=== PATIENT | female | born 1990 | race Caucasian/White ===

== ENCOUNTER 2017-04-07 22:42 | Emergency (ER) | payer SELFPAY ==
[~2017-04-07] VITALS: Ht 165.1 cm; Wt 60.4 kg
[~2017-04-07 22:42] MED LIST: HYDR-923; IBUP800T19 PO; PREN1TAB58 PO
[2017-04-07 23:33] LABS: INFLUENZA A PATIENT NEGATIVE (NEGATIVE); INFLUENZA B PATIENT NEGATIVE (NEGATIVE)
--- NOTE | 2017-04-07 23:57 | PHYS DOC ---
Past History Past Medical History: Cancer, Ovarian Cyst Past Surgical History: Appendectomy, Cancer Surgery Smoking: Greater than 1 pack/day Alcohol Use: Occasionally Drug Use: None Adult General Chief Complaint Chief Complaint: FLU SYMPTOM [facility] 26-year-old male patient complaining of fever and cough and sore throat and nasal congestion for the last 3 days that gradually getting worse. Patient states she feels pain in her throat that radiated to her ears and complaining of generalized weakness and not feeling good. Patient complaining of nausea without vomiting and diarrhea. Patient states she has sick contacts at work. Review of Systems Review of Systems Constitutional: Reports fever and generalized weakness Eyes: Denies change in visual acuity, redness, or eye pain [] HENT: Reports nasal congestion or sore throat Respiratory: Reports cough and shortness of breath[] Cardiovascular: No additional information not addressed in HPI [] GI: Denies abdominal pain, nausea, vomiting, bloody stools or diarrhea [] : Denies dysuria or hematuria [] Musculoskeletal: Denies back pain or joint pain [] Integument: Denies rash or skin lesions [] Neurologic: Denies headache, focal weakness or sensory changes [] Endocrine: Denies polyuria or polydipsia [] All other systems were reviewed and found to be within normal limits, except as documented in this note. Allergies Allergies Allergies Coded Allergies Type Severity Reaction Last Updated Verified divalproex sodium Allergy Intermediate Hives 07/20/15 Yes ondansetron HCl Allergy Intermediate 07/20/15 Yes promethazine HCl Allergy Intermediate 07/20/15 Yes Physical Exam Physical Exam Constitutional: Well developed, well nourished, mild distress, non-toxic appearance, febrile, temperature 100.3. [] HENT: Normocephalic, atraumatic, bilateral external ears normal, oropharynx moist, pharyngeal erythema and edema, no oral exudates, nose normal. [] Eyes: PERRLA, EOMI, conjunctiva normal, no discharge. [] Neck: Normal range of motion, no tenderness, supple, no stridor. [] Cardiovascular:Heart rate regular rhythm, no murmur [] Lungs & Thorax: Bilateral breath sounds clear to auscultation [] Abdomen: Bowel sounds normal, soft, no tenderness, no masses, no pulsatile masses. [] Skin: Warm, dry, no erythema, no rash. [] Back: No tenderness, no CVA tenderness. [] Extremities: No tenderness, no cyanosis, no clubbing, ROM intact, no edema. [] Neurologic: Alert and oriented X 3, normal motor function, normal sensory function, no focal deficits noted. [] Psychologic: Affect normal, judgement normal, mood normal. [] Current Patient Data Vital Signs Vital Signs Date Time Temp Pulse Resp B/P (MAP) Pulse Ox O2 Delivery O2 Flow Rate FiO2 04/07/17 22:50 98.9 96 18 100 Room Air Lab Results Laboratory Tests Test 04/07/17 23:00 Influenza Type A (Rapid) Negative (NEGATIVE) Influenza Type B (Rapid) Negative (NEGATIVE) EKG EKG [] Radiology/Procedures Radiology/Procedures [] Course & Med Decision Making Course & Med Decision Making Pertinent Labs studies reviewed. (See chart for details) Evolution of patient in ER showed 26-year-old female patient with flulike symptoms for the last 3 days with negative flu test. Patient treated with Tylenol and Tessalon and felt better. Plan discharge patient home with diagnosis of viral upper respiratory infection. Dragon Disclaimer Dragon Disclaimer This electronic medical record was generated, in whole or in part, using a voice recognition dictation system. Departure Departure: Impression: Primary Impression: Fever Additional Impressions: Tobacco abuse Tobacco abuse counseling Disposition: 01 HOME, SELF-CARE (At 0019) Condition: IMPROVED Referrals: LUIS E HICKMAN MD (PCP) Patient Instructions: Fever, Adult, Smoking Cessation, Tips For Success, Upper Respiratory Infection, Adult Additional Instructions: Drink plenty of liquids Follow-up with your primary care physician in 3-5 days Return to ER if not getting better Scripts Tramadol Hcl (ULTRAM) 50 Mg Tablet 50 MG PO PRN Q6HRS Y for PAIN, #14 TAB Prov: AR WALLACE MD 04/08/17 Benzonatate (TESSALON PERLE) 100 Mg Capsule 1 CAP PO TID, #30 CAP Prov: AR WALLACE MD 04/08/17 Problem Qualifiers AR WALLACE MD Apr 07, 2017 23:57
[2017-04-08] MEDS ORDERED: HYDROcodone/APAP 5/325MG 1 TAB TABLET PO ONE (00:15)
[2017-04-08] MEDS ORDERED: ACETAMINOPHEN 325 MG TABLET PO ONE (00:15)
[2017-04-08] MEDS ORDERED: BENZONATATE 100 MG CAPSULE. PO ONE (00:15)
[2017-04-08] MEDS ORDERED: BENZ100C PO (00:21)
[2017-04-08] MEDS ORDERED: TRAM-48 PO (00:21)
[2017-04-08 00:25] VITALS: BP 106/62
== END 2017-04-08 00:30 | disposition home or self-care (01) ==
LOC: ER 22:42
DX: J06.9 Acute upper respiratory infection, unspecified (principal); B97.89 Other viral agents as the cause of diseases classified elsewhere; F17.200 Nicotine dependence, unspecified, uncomplicated; Z71.6 Tobacco abuse counseling; Z88.8 Allergy status to other drugs, medicaments and biological substances
CPT/HCPCS: 87804; 99284

== ENCOUNTER 2017-04-13 17:42 | Emergency (ER) | payer SELFPAY ==
[~2017-04-13] VITALS: Ht 165.1 cm; Wt 60.4 kg
[~2017-04-13 17:42] MED LIST changes: +BENZ100C PO; +TRAM-48 PO
--- NOTE | 2017-04-13 17:50 | ED.ADGEN ---
Past History Past Medical History: Cancer, Ovarian Cyst, Other Past Surgical History: Appendectomy, Cancer Surgery Smoking: Greater than 1 pack/day Alcohol Use: Occasionally Drug Use: None Adult General Chief Complaint Chief Complaint " I am having bad abdomen pain again.. more here on Rt. I ve had ovarian cysts in the past.. I ve had 5 ovarian cyst surgeries [facility] HPI Patient is a 26 year old female who presents with above hx and complaints of lower Rt abd. and pelvic pain. Pt. has hx of recurrent ovarian cysts and 5 surgeries for ovarian cyst. Patient normally follows with Dr. North and Dr. Wilson. Patient has has an appendectomy on right. Patient denies any trauma, bad food, travel, or specific ill contacts. Reportedly having normal stools. Patient denies pelvic discharge. Patient denies history of STDs. Review of Systems Review of Systems Constitutional: Denies fever or chills [] Eyes: Denies change in visual acuity, redness, or eye pain [] HENT: Denies nasal congestion or sore throat [] Respiratory: Denies cough or shortness of breath [] Cardiovascular: No additional information not addressed in HPI [] GI: Complaints of abdominal pain, nausea, .Denies Vomiting, bloody stools or diarrhea [] : some complaints of dysuria . Denies vaginal discharge Musculoskeletal: Denies back pain or joint pain [] Integument: Denies rash or skin lesions [] Neurologic: Denies headache, focal weakness or sensory changes [] Endocrine: Denies polyuria or polydipsia [] All other systems were reviewed and found to be within normal limits, except as documented in this note. Family History Family History Noncontributory to presentation Current Medications Current Medications Current Medications Medications (Trade) Dose Ordered Sig/Arcadio Start Time Stop Time Status Last Admin Dose Admin Ceftriaxone Sodium 1 gm/ Sodium Chloride 50 ml @ 100 mls/hr 1X ONCE 04/13/17 21:30 04/13/17 21:59 UNV Ceftriaxone Sodium (Rocephin) 1 gm 1X ONCE 04/13/17 22:00 04/13/17 22:01 DC 04/13/17 21:45 1 GM Diphenhydramine HCl (Benadryl) 50 mg 1X ONCE 04/13/17 22:30 04/13/17 22:30 DC 04/13/17 22:21 50 MG Famotidine (Pepcid Vial) 20 mg 1X ONCE 04/13/17 18:45 04/13/17 18:46 DC 04/13/17 19:39 20 MG Iohexol (Omnipaque 300 Mg/ml) 75 ml 1X ONCE 04/13/17 19:45 04/13/17 19:46 DC 04/13/17 19:39 75 ML Ketorolac Tromethamine (Toradol) 30 mg 1X ONCE 04/13/17 21:00 04/13/17 21:32 DC 04/13/17 21:00 30 MG Lactated Ringer's 1,000 ml @ 1,000 mls/hr Q1H 04/13/17 18:11 04/13/17 19:10 DC 04/13/17 19:39 1,000 MLS/HR Magnesium Hydroxide (Milk Of Magnesia) 2,400 mg 1X ONCE 04/13/17 20:45 04/13/17 20:46 DC 04/13/17 20:30 2,400 MG Metoclopramide HCl (Reglan Vial) 10 mg 1X ONCE 04/13/17 22:30 04/13/17 22:30 DC 04/13/17 22:17 10 MG Morphine Sulfate (Morphine 10mg Syringe) 10 mg 1X ONCE 04/13/17 19:00 04/13/17 19:01 DC 04/13/17 19:40 10 MG Ondansetron HCl (Zofran) 8 mg 1X ONCE 04/13/17 18:15 04/13/17 18:17 DC Phenazopyridine HCl (Pyridium) 200 mg 1X ONCE 04/13/17 22:00 04/13/17 22:01 DC See nursing for home meds Allergies Allergies Allergies Coded Allergies Type Severity Reaction Last Updated Verified divalproex sodium Allergy Intermediate Hives 04/13/17 Yes ondansetron HCl Allergy Intermediate 04/13/17 Yes promethazine HCl Allergy Intermediate 04/13/17 Yes Physical Exam Physical Exam Constitutional: Moderately acute distress, non-toxic appearance. [] HENT: Normocephalic, atraumatic, bilateral external ears normal, oropharynx moist, no oral exudates, nose normal. [] Eyes: PERRLA, EOMI, conjunctiva normal, no discharge. [] Neck: Normal range of motion, no tenderness, supple, no stridor. [] Cardiovascular:Heart rate regular rhythm, no murmur [] Lungs & Thorax: Bilateral breath sounds clear to auscultation [] Abdomen: Bowel sounds decreased, soft, lower Rt. pelvic tenderness, no masses, no pulsatile masses. [] Old surgery scars. Patient declines rectal or pelvic exam at this time. Mild distention. Skin: Warm, dry, no erythema, no rash. [] Tattoos. Back: No tenderness, no CVA tenderness. [] Extremities: No tenderness, no cyanosis, no clubbing, ROM intact, no edema. [] No psoas. No heel tap. Neurologic: Alert and oriented X 3, normal motor function, normal sensory function, no focal deficits noted. [] Psychologic: Affect anxious, , judgement normal, mood normal. [] Current Patient Data Vital Signs Vital Signs Date Time Temp Pulse Resp B/P (MAP) Pulse Ox O2 Delivery O2 Flow Rate FiO2 04/13/17 21:56 90 90/55 (67) 99 04/13/17 21:26 18 04/13/17 19:59 98.7 Room Air Lab Results Laboratory Tests Test 04/13/17 19:10 04/13/17 19:20 White Blood Count 7.3 x10^3/uL (4.0-11.0) Red Blood Count 4.37 x10^6/uL (3.50-5.40) Hemoglobin 13.3 g/dL (12.0-15.5) Hematocrit 39.3 % (36.0-47.0) Mean Corpuscular Volume 90 fL (79-100) Mean Corpuscular Hemoglobin 31 pg (25-35) Mean Corpuscular Hemoglobin Concent 34 g/dL (31-37) Red Cell Distribution Width 13.7 % (11.5-14.5) Platelet Count 222 x10^3/uL (140-400) Neutrophils (%) (Auto) 60 % (31-73) Lymphocytes (%) (Auto) 31 % (24-48) Monocytes (%) (Auto) 7 % (0-9) Eosinophils (%) (Auto) 1 % (0-3) Basophils (%) (Auto) 0 % (0-3) Neutrophils # (Auto) 4.4 x10^3uL (1.8-7.7) Lymphocytes # (Auto) 2.3 x10^3/uL (1.0-4.8) Monocytes # (Auto) 0.5 x10^3/uL (0.0-1.1) Eosinophils # (Auto) 0.1 x10^3/uL (0.0-0.7) Basophils # (Auto) 0.0 x10^3/uL (0.0-0.2) Prothrombin Time 11.4 SEC (9.4-11.4) Prothrombin Time INR 1.1 (0.9-1.1) PTT 27 SEC (23-33) Sodium Level 142 mmol/L (136-145) Potassium Level 3.5 mmol/L (3.5-5.1) Chloride Level 105 mmol/L (98-107) Carbon Dioxide Level 27 mmol/L (21-32) Anion Gap 10 (6-14) Blood Urea Nitrogen 8 mg/dL (7-20) Creatinine 0.6 mg/dL (0.6-1.0) Estimated GFR (Cockcroft-Gault) 122.8 Glucose Level 87 mg/dL (70-99) Calcium Level 9.0 mg/dL (8.5-10.1) Total Bilirubin 0.4 mg/dL (0.2-1.0) Direct Bilirubin 0.1 mg/dL (0.0-0.2) Aspartate Amino Transferase (AST) 14 U/L (15-37) L Alanine Aminotransferase (ALT) 19 U/L (14-59) Alkaline Phosphatase 52 U/L (46-116) Total Protein 8.3 g/dL (6.4-8.2) H Albumin 4.0 g/dL (3.4-5.0) Amylase Level 42 U/L (25-115) Lipase 113 U/L (73-393) Urine Opiates Screen Pos (NEG) Urine Methadone Screen Neg (NEG) Urine Barbiturates Neg (NEG) Urine Phencyclidine Screen Neg (NEG) Urine Amphetamine/Methamphetamine Neg (NEG) Urine Benzodiazepines Screen Neg (NEG) Urine Cocaine Screen Neg (NEG) Urine Cannabinoids Screen Neg (NEG) Urine Ethyl Alcohol Neg (NEG) Urine Collection Type Unknown Urine Color Yellow Urine Clarity Cloudy Urine pH 5.0 Urine Specific [place] 1.025 Urine Protein Neg (NEG-TRACE) Urine Glucose (UA) Neg mg/dL (NEG) Urine Ketones (Stick) Trace mg/dL (NEG) Urine Blood Trace (NEG) Urine Nitrite Neg (NEG) Urine Bilirubin Neg (NEG) Urine Urobilinogen Dipstick 0.2 mg/dL (0.2 mg/dL) Urine Leukocyte Esterase Small (NEG) Urine RBC 1-2 /HPF (0-2) Urine WBC 20-40 /HPF (0-4) Urine Squamous Epithelial Cells Few /LPF Urine Bacteria 0 /HPF (0-FEW) Urine Mucus Mod /LPF EKG EKG [] Radiology/Procedures Radiology/Procedures My interpretation acute abdomen shows[] nonspecific bowel gas pattern. There is an IUD. No free air in the diaphragm. CT of abdomen shows absence of the appendix and Lt. ovary. There is a small amount of free fluid, and small ovary cyst on right. No surgical pathology appreciated. See formal report when available. Course & Med Decision Making Course & Med Decision Making Pertinent Labs and Imaging studies reviewed. (See chart for details). Push fruit juices vitamin C drinks. Stay on a clear fluid diet for the next 24 hours. Take Tylenol and ibuprofen as needed for pain. Marked discomfort may take Vicoprofen 4 times a day. Take milk mag daily for constipation if taking narcotics. Return if any concerns. Follow-up primary care. Follow-up urine cultures with primary care. Take Keflex 500 mg 3 times a day x7 days. [] Final Impression Final Impression 1. Abdomen Pain[] 2. Ovarian Cysts 3. UTI 4. Constipation Problems: Dragon Disclaimer Dragon Disclaimer This electronic medical record was generated, in whole or in part, using a voice recognition dictation system. KAVON LEI MD Apr 13, 2017 17:49
[2017-04-13] MEDS ORDERED: IV RINGERS SOLUTION,LACTATED 1,000 ML IV SCH (18:11)
[2017-04-13] MEDS ORDERED: ONDANSETRON PF 4 MG/2 ML VIAL. IV ONE (18:15)
[2017-04-13] MEDS ORDERED: FAMOTIDINE 20 MG/2 ML VIAL IVP ONE (18:45)
[2017-04-13] MEDS ORDERED: MORPHINE SULFATE 10 MG/ML SYRINGE. SQ ONE (19:00)
[2017-04-13 19:35] LABS: BASO % 0 % (0-3); EOS # 0.1 x10^3/uL (0.0-0.7); EOS % 1 % (0-3); HEMATOCRIT 39.3 % (36.0-47.0); HEMOGLOBIN 13.3 g/dL (12.0-15.5); LYMPH # 2.3 x10^3/uL (1.0-4.8); LYMPH % 31 % (24-48); MEAN CORPUSCULAR HEMOGLOBIN 31 pg (25-35); MEAN CORPUSCULAR HGB CONC 34 g/dL (31-37); MEAN CORPUSCULAR VOLUME 90 fL (79-100); MONO # 0.5 x10^3/uL (0.0-1.1); MONO % 7 % (0-9); NEUT # 4.4 x10^3uL (1.8-7.7); NEUT % 60 % (31-73); PLATELET COUNT 222 x10^3/uL (140-400); RED BLOOD COUNT 4.37 x10^6/uL (3.50-5.40); RED CELL DISTRIBUTION WIDTH 13.7 % (11.5-14.5); WHITE BLOOD COUNT 7.3 x10^3/uL (4.0-11.0)
[2017-04-13 19:42] LABS: CREATININE 0.6 mg/dL (0.6-1.0); DIRECT BILIRUBIN 0.1 mg/dL (0.0-0.2); GFR 122.8; POTASSIUM 3.5 mmol/L (3.5-5.1); TOTAL BILIRUBIN 0.4 mg/dL (0.2-1.0); TOTAL PROTEIN 8.3 g/dL (6.4-8.2)
[2017-04-13] MEDS ORDERED: IOHEXOL 300 MG/ML 75 ML VIAL. IV ONE (19:45)
[2017-04-13 19:53] LABS: AMPHETAMINE/METHAMPHETAMINE NEG (NEG); BARBITURATES NEG (NEG); BENZODIAZEPINES NEG (NEG); CANNABINOIDS NEG (NEG); COCAINE NEG (NEG); METHADONE NEG (NEG); OPIATES POS (NEG); PHENCYCLIDINE NEG (NEG)
--- NOTE | 2017-04-13 20:08 | RAD ---
EXAM: Abdomen and pelvis CT with intravenous contrast. HISTORY: Right lower quadrant pain. TECHNIQUE: Computed tomographic images of the abdomen and pelvis were obtained following the administration of 75 cc Omnipaque 300 intravenous contrast. Multiplanar reformatting was performed. *One or more of the following individualized dose reduction techniques were utilized for this examination: 1. Automated exposure control. 2. Adjustment of the mA and/or kV according to patient size. 3. Use of iterative reconstruction technique. COMPARISON: 09/15/2015. FINDINGS: Evaluation of the lower thorax is unremarkable. No hepatic lesion is seen. The gallbladder, pancreas and adrenal glands are unremarkable. There is a splenule adjacent to an otherwise unremarkable spleen. The adrenal glands are unremarkable. The appendix is surgically absent. No abnormally thickened or dilated loop of bowel is seen. There is an intrauterine contraceptive device within the endometrial cavity. The left ovary is surgically absent. There are multiple right ovarian follicles with a suspected peripherally enhancing involuting right ovarian follicular cyst measuring 1.4 cm. There is a small amount of pelvic free fluid. No pathologically enlarged lymph node is seen. There is no suspicious osseous lesion. There are small lumbar endplate Schmorl's nodes. IMPRESSION: 1. 1.4 cm peripherally enhancing right ovarian cyst, likely an involuting cyst. There is a small amount of pelvic free fluid, within physiologic limits. The left ovary an appendix are surgically absent. 2. No additional acute abdominal or pelvic finding. Electronically signed by: Farrah Ruiz MD (04/13/2017 8:05 PM) [facility]
[2017-04-13] MEDS ORDERED: MAGNESIUM HYDROXIDE 2,400 MG/30 ML ORAL.SUSP. PO ONE (20:45)
[2017-04-13 20:51] LABS: BACTERIA,URINE 0 /HPF (0-FEW); BILIRUBIN,URINE NEG (NEG); CLARITY,URINE CLOUDY; COLOR,URINE YELLOW; GLUCOSE,URINE NEG (NEG); NITRITE,URINE NEG (NEG); SQUAMOUS EPITHELIAL CELL,UR FEW /LPF; UROBILINOGEN,URINE 0.2 mg/dL (0.2 mg/dL); WBC,URINE 20-40 /HPF (0-4)
[2017-04-13] MEDS ORDERED: KETOROLAC 30 MG/ML VIAL. IV ONE (21:00)
[2017-04-13] MEDS ORDERED: CEPH-264 PO (21:27)
[2017-04-13] MEDS ORDERED: HYDR-79 PO (21:27)
[2017-04-13 21:56] VITALS: BP 90/55
[2017-04-13] MEDS ORDERED: cefTRIAXone IV Push 1 GM VIAL. IVP ONE (22:00)
[2017-04-13] MEDS ORDERED: PHENAZOPYRIDINE 200 MG TABLET. PO ONE (22:00)
[2017-04-13] MEDS ORDERED: diphenhydrAMINE 50 MG/ML VIAL IVP ONE (22:30)
[2017-04-13] MEDS ORDERED: METOCLOPRAMIDE HCL 10 MG/2 ML VIAL. IV ONE (22:30)
--- NOTE | 2017-04-14 07:52 | RAD ---
Acute abdomen series with chest, 3 views, 04/13/2017: History: Right lower quadrant pain An IUD is projected over the mid pelvis. The abdominal gas pattern is unremarkable. No free air seen in the abdomen. There is no evidence of organomegaly or abnormal abdominal calcification. The heart size is normal. The lungs are clear. There is no evidence of pleural fluid. IMPRESSION: 1. An IUD is in place. 2. No acute abdominal abnormality is detected.
== END 2017-04-13 22:15 | disposition home or self-care (01) ==
LOC: ER 17:42
DX: N83.201 Unspecified ovarian cyst, right side (principal); N39.0 Urinary tract infection, site not specified; K59.00 Constipation, unspecified; F17.200 Nicotine dependence, unspecified, uncomplicated; Z90.49 Acquired absence of other specified parts of digestive tract; Z88.8 Allergy status to other drugs, medicaments and biological substances
CPT/HCPCS: 36415; 74022; 74177; 80048; 80076; 80307; 81001; 82150; 83690; 85025; 85610; 85730; 87086; 96361; 96372; 96374; 96375; 99285; J0696; J1200; J1885; J2270; J2765; J7120; Q9967; S0028; G0479

== ENCOUNTER → 2018-04-22 | Outpatient (CLI) | payer OTHER ==
[~2018-04-22] MED LIST changes: +CEPH-264 PO; +DOXE10CA PO; +FLUO10CA13 PO; +HYDR-1179 PO; +METO10TA81 PO; +OMEP20CA9 PO; +SUCR1TAB35 PO
--- NOTE | 2018-04-22 08:03 | RAD ---
Right upper quadrant ultrasound 04/22/2018 INDICATION: Right upper quadrant pain. Intermittent times several weeks. COMPARISON STUDY: CT of the abdomen and pelvis April 13, 2017. Discussion: The pancreas is partially visualized. Visualized portions of the pancreas are normal in appearance. Visualized portions of the IVC are unremarkable. The gallbladder is normal in appearance without evidence of wall thickening, stones, or sludge. Portal venous flows in the normal direction. The common bile duct is mildly dilated at 5 mm in diameter. The liver is normal in size measuring 16.7 cm longitudinally. The liver is normal in echotexture. No focal hepatic lesions are seen. The right kidney is normal in appearance measuring 11.3 cm in length. IMPRESSION: 1.Minimal nonspecific prominence of the common bile duct. No other significant biliary dilatation is seen on ultrasound, or on recent CT scan. Finding may be incidental. Consider correlation with serum bilirubin levels. Consider MRCP as clinically indicated. 2. No other right upper quadrant sonographic abnormality is identified Electronically signed by: Huseyin Degroot MD (04/22/2018 8:00 AM) [id number]
== END | disposition home or self-care (01) ==
LOC: US 07:17
PROVIDERS: ATTEND Family Medicine
DX: R10.11 Right upper quadrant pain (principal); R10.33 Periumbilical pain; R11.0 Nausea
CPT/HCPCS: 76705

== ENCOUNTER 2018-05-07 11:51 | Emergency (ER) | payer OTHER ==
[~2018-05-07] VITALS: Ht 165.1 cm; Wt 68.0 kg
[~2018-05-07 11:51] MED LIST changes: -DOXE10CA PO; -FLUO10CA13 PO; -METO10TA81 PO; -OMEP20CA9 PO; -SUCR1TAB35 PO
[2018-05-07] MEDS ORDERED: IV NORMAL SALINE 1,000ML 1,000 ML IV SCH (12:14)
[2018-05-07 12:46] LABS: BASO % 1 % (0-3); EOS # 0.1 x10^3/uL (0.0-0.7); EOS % 1 % (0-3); HEMATOCRIT 39.7 % (36.0-47.0); HEMOGLOBIN 13.1 g/dL (12.0-15.5); LYMPH # 1.2 x10^3/uL (1.0-4.8); LYMPH % 34 % (24-48); MEAN CORPUSCULAR HEMOGLOBIN 31 pg (25-35); MEAN CORPUSCULAR HGB CONC 33 g/dL (31-37); MEAN CORPUSCULAR VOLUME 92 fL (79-100); MONO # 0.3 x10^3/uL (0.0-1.1); MONO % 10 % (0-9); NEUT % 54 % (31-73); PLATELET COUNT 157 x10^3/uL (140-400); RED BLOOD COUNT 4.31 x10^6/uL (3.50-5.40); RED CELL DISTRIBUTION WIDTH 13.9 % (11.5-14.5); WHITE BLOOD COUNT 3.6 x10^3/uL (4.0-11.0)
--- NOTE | 2018-05-07 12:48 | PHYS DOC ---
Past History Past Medical History: Cancer, Ovarian Cyst, Other Past Surgical History: No Surgical History Smoking: Greater than 1 pack/day Alcohol Use: None Drug Use: None Adult General Chief Complaint Chief Complaint: BLOODY STOOL HPI HPI Patient is a 27 year old female who presents with complaint of abdominal pain, vomiting, and diarrhea. Patient states that her symptoms have been present over the past 2 weeks. Patient states that she has been following at her primary physician's office for continued workup. Recently had a gallbladder ultrasound and MRCP completed. Patient states that she was noted to have a mildly dilated common bile duct but no evidence of gallbladder stones or common bile duct blockage. States despite outpatient treatment with Zofran and Phenergan, she has had continued vomiting. Rates abdominal pain currently 7 out of 10. Patient states it's in her upper abdomen and radiates to her right upper quadrant. Notes that 2 days ago she had a fever of 102F but no fevers today. States she did take Tylenol 1000 mg approximately 4 hours prior to arrival. Due to worsening symptoms she went to her primary physician's office who referred her to the emergency department for further evaluation and treatment. Patient also notes that yesterday she had an episode of blood in her stool. Has not had any bowel movements today. Review of Systems Review of Systems Constitutional: Fever[] Eyes: Denies change in visual acuity, redness, or eye pain [] HENT: Denies nasal congestion or sore throat [] Respiratory: Denies cough or shortness of breath [] Cardiovascular: Denies chest pain or edema[] GI: Abdominal pain, nausea, vomiting, diarrhea, blood in stool[] : Denies dysuria or hematuria [] Musculoskeletal: Denies back pain or joint pain [] Integument: Denies rash or skin lesions [] Neurologic: Denies headache, focal weakness or sensory changes [] Endocrine: Denies polyuria or polydipsia [] All other systems were reviewed and found to be within normal limits, except as documented in this note. Current Medications Current Medications Current Medications Medications (Trade) Dose Ordered Sig/Arcadio Start Time Stop Time Status Last Admin Dose Admin Diphenhydramine HCl (Benadryl) 25 mg 1X ONCE 05/07/18 13:00 05/07/18 13:01 Famotidine (Pepcid Vial) 20 mg 1X ONCE 05/07/18 13:00 05/07/18 13:01 Metoclopramide HCl (Reglan Vial) 10 mg 1X ONCE 05/07/18 13:00 05/07/18 13:01 Sodium Chloride 1,000 ml @ 1,000 mls/hr Q1H 05/07/18 12:14 05/07/18 13:13 Allergies Allergies Allergies Coded Allergies Type Severity Reaction Last Updated Verified divalproex sodium Allergy Intermediate Hives 04/13/17 Yes Physical Exam Physical Exam Constitutional: Alert, afebrile, appears in moderate discomfort. [] HENT: Normocephalic, atraumatic, bilateral external ears normal, oropharynx moist, no oral exudates, nose normal. [] Eyes: PERRLA, EOMI, conjunctiva normal, no discharge. [] Neck: Normal range of motion, no tenderness, supple, no stridor. [] Cardiovascular:Heart rate regular rhythm, no murmur [] Lungs & Thorax: Bilateral breath sounds clear to auscultation [] Abdomen: Bowel sounds normal, soft, epigastric and right upper quadrant tenderness to palpation with mild guarding, no rebound tenderness, no masses, no pulsatile masses. Rectal: Normal external exam, nontender on exam, no gross blood present in rectal vault, no palpable internal hemorrhoids[] Skin: Warm, dry, no erythema, no rash. [] Back: No tenderness, no CVA tenderness. [] Extremities: No tenderness, no cyanosis, no clubbing, ROM intact, no edema. [] Neurologic: Alert and oriented X 3, normal motor function, normal sensory function, no focal deficits noted. [] Current Patient Data Vital Signs Vital Signs Date Time Temp Pulse Resp B/P (MAP) Pulse Ox O2 Delivery O2 Flow Rate FiO2 05/07/18 13:07 56 20 107/65 (79) 100 Room Air 05/07/18 12:05 98.0 Lab Results Laboratory Tests Test 05/07/18 12:34 POC Urine HCG, Qualitative hcg negative (Negative) Laboratory Tests Test 05/07/18 12:24 05/07/18 12:30 05/07/18 12:34 White Blood Count 3.6 x10^3/uL Red Blood Count 4.31 x10^6/uL Hemoglobin 13.1 g/dL Hematocrit 39.7 % Mean Corpuscular Volume 92 fL Mean Corpuscular Hemoglobin 31 pg Mean Corpuscular Hemoglobin Concent 33 g/dL Red Cell Distribution Width 13.9 % Platelet Count 157 x10^3/uL Neutrophils (%) (Auto) 54 % Lymphocytes (%) (Auto) 34 % Monocytes (%) (Auto) 10 % Eosinophils (%) (Auto) 1 % Basophils (%) (Auto) 1 % Neutrophils # (Auto) 2.0 x10^3uL Lymphocytes # (Auto) 1.2 x10^3/uL Monocytes # (Auto) 0.3 x10^3/uL Eosinophils # (Auto) 0.1 x10^3/uL Basophils # (Auto) 0.0 x10^3/uL Sodium Level 144 mmol/L Potassium Level 3.9 mmol/L Chloride Level 108 mmol/L Carbon Dioxide Level 28 mmol/L Anion Gap 8 Blood Urea Nitrogen 9 mg/dL Creatinine 0.7 mg/dL Estimated GFR (Cockcroft-Gault) 102.0 BUN/Creatinine Ratio 13 Glucose Level 90 mg/dL Calcium Level 8.7 mg/dL Total Bilirubin 0.4 mg/dL Aspartate Amino Transf (AST/SGOT) 18 U/L Alanine Aminotransferase (ALT/SGPT) 25 U/L Alkaline Phosphatase 51 U/L Total Protein 7.5 g/dL Albumin 3.8 g/dL Albumin/Globulin Ratio 1.0 Lipase 101 U/L Urine Collection Type Unknown Urine Color Yellow Urine Clarity Hazy Urine pH 8.0 Urine Specific [place] 1.020 Urine Protein Neg Urine Glucose (UA) Neg mg/dL Urine Ketones (Stick) Neg mg/dL Urine Blood Neg Urine Nitrite Neg Urine Bilirubin Neg Urine Urobilinogen Dipstick 0.2 mg/dL Urine Leukocyte Esterase Neg Urine RBC 0 /HPF Urine WBC Occ /HPF Urine Squamous Epithelial Cells Many /LPF Urine Amorphous Sediment Present /HPF Urine Bacteria Few /HPF Urine Mucus Slight /LPF Bedside Urine HCG, Qualitative hcg negative Current Medications Medications (Trade) Dose Ordered Sig/Arcadio Route PRN Reason Start Time Stop Time Status Last Admin Dose Admin Sodium Chloride 1,000 ml @ 1,000 mls/hr Q1H IV 05/07/18 12:14 05/07/18 13:13 DC 05/07/18 12:48 Famotidine (Pepcid Vial) 20 mg 1X ONCE IVP 05/07/18 13:00 05/07/18 13:01 DC 05/07/18 12:51 Metoclopramide HCl (Reglan Vial) 10 mg 1X ONCE IV 05/07/18 13:00 05/07/18 13:01 DC 05/07/18 12:52 Diphenhydramine HCl (Benadryl) 25 mg 1X ONCE IVP 05/07/18 13:00 05/07/18 13:01 DC 05/07/18 12:53 Ketorolac Tromethamine (Toradol 30mg Vial) 30 mg 1X ONCE IV 05/07/18 13:00 05/07/18 13:01 DC 05/07/18 12:54 EKG EKG Not performed[] Radiology/Procedures Radiology/Procedures Not performed[] Course & Med Decision Making Course & Med Decision Making Pertinent Labs and Imaging studies reviewed. (See chart for details) The patient was given IV fluids, Reglan, Benadryl, and Pepcid. On reevaluation , patient states she is feeling better at this time. Vital signs are stable, blood work is unremarkable, and patient's abdominal exam at this time is not consistent with an acute or surgical abdomen. Patient not currently passing gross blood on exam. After discussing with patient, she states that she would like to go home at this time. Patient has appointment in 3 days with gastroenterology. Advised to on her this appointment as scheduled. Patient prescribed Reglan for outpatient treatment of nausea. Advised return to emergency department for any worsening symptoms. Patient was understanding and in agreement with treatment plan. Dragon Disclaimer Dragon Disclaimer This electronic medical record was generated, in whole or in part, using a voice recognition dictation system. Departure Departure: Impression: Primary Impression: Abdominal pain Additional Impressions: Nausea and vomiting Diarrhea Disposition: HOME, SELF-CARE Condition: STABLE Referrals: AMAN GREGG MD (PCP) Patient Instructions: Abdominal Pain (Nonspecific), Diarrhea, Nausea and Vomiting Additional Instructions: Follow-up with your missing persons investigator in 3 days as scheduled. Return to the emergency department for any worsening symptoms. Scripts Metoclopramide Hcl (REGLAN) 10 Mg Tablet 1 TAB PO TID PRN for NAUSEA/VOMITING, #30 TAB Prov: RADHIKA COVINGTON MD 05/07/18 Problem Qualifiers Primary Impression: Abdominal pain Abdominal location: epigastric Qualified Codes: R10.13 - Epigastric pain Additional Impressions: Nausea and vomiting Vomiting type: unspecified Vomiting Intractability: unspecified Qualified Codes: R11.2 - Nausea with vomiting, unspecified Diarrhea Diarrhea type: unspecified type Qualified Codes: R19.7 - Diarrhea, unspecified RADHIKA COVINGTON MD May 07, 2018 12:48
[2018-05-07 12:54] LABS: BILIRUBIN,URINE NEG (NEG); CLARITY,URINE HAZY; COLOR,URINE YELLOW; GLUCOSE,URINE NEG (NEG); NITRITE,URINE NEG (NEG); RBC,URINE 0 /HPF (0-2); UROBILINOGEN,URINE 0.2 mg/dL (0.2 mg/dL); WBC,URINE OCC /HPF (0-4)
[2018-05-07 12:55] LABS: AMORPHOUS SEDIMENT,UR PRESENT /HPF; BACTERIA,URINE FEW /HPF (0-FEW); SQUAMOUS EPITHELIAL CELL,UR MANY /LPF
[2018-05-07 12:58] LABS: ALBUMIN 3.8 g/dL (3.4-5.0); CALCIUM 8.7 mg/dL (8.5-10.1); CREATININE 0.7 mg/dL (0.6-1.0); POTASSIUM 3.9 mmol/L (3.5-5.1); TOTAL BILIRUBIN 0.4 mg/dL (0.2-1.0); TOTAL PROTEIN 7.5 g/dL (6.4-8.2)
[2018-05-07] MEDS ORDERED: KETOROLAC 30 MG/ML VIAL. IV ONE (13:00)
[2018-05-07] MEDS ORDERED: FAMOTIDINE 20 MG/2 ML VIAL IVP ONE (13:00)
[2018-05-07] MEDS ORDERED: METOCLOPRAMIDE HCL 10 MG/2 ML VIAL. IV ONE (13:00)
[2018-05-07] MEDS ORDERED: diphenhydrAMINE 50 MG/ML VIAL IVP ONE (13:00)
[2018-05-07] MEDS ORDERED: METO10TA81 PO (13:27)
[2018-05-07 13:35] VITALS: BP 116/59
[2018-05-13] MEDS ORDERED: SUCR1TAB35 PO (08:24)
[2018-05-13] MEDS ORDERED: FLUO10CA13 PO (08:24)
[2018-05-13] MEDS ORDERED: OMEP20CA9 PO (08:24)
[2018-05-13] MEDS ORDERED: DOXE10CA PO (08:24)
== END 2018-05-07 13:35 | disposition home or self-care (01) ==
LOC: ER 11:51
DX: R10.13 Epigastric pain (principal); R11.2 Nausea with vomiting, unspecified; R19.7 Diarrhea, unspecified; F17.200 Nicotine dependence, unspecified, uncomplicated; K92.1 Melena; Z88.8 Allergy status to other drugs, medicaments and biological substances
CPT/HCPCS: 36415; 80053; 81001; 81025; 83690; 85025; 96361; 96374; 96375; 99284; J1200; J1885; J2765; J3490; J7030

== ENCOUNTER → 2018-05-13 | Outpatient (CLI) | payer OTHER ==
[2018-05-07 13:35] VITALS: BP 116/59
[~2018-05-13] VITALS: Ht 165.1 cm; Wt 67.6 kg
[~2018-05-13] MED LIST changes: +DOXE10CA PO; +FLUO10CA13 PO; +METO10TA81 PO; +OMEP20CA9 PO; +SINCALIDE 1.4 MCG in IV NORMAL SALINE 50ML 30 ML IV ONE; +SUCR1TAB35 PO
--- NOTE | 2018-05-13 12:03 | RAD ---
HEPATOBILIARY SCAN WITH EJECTION FRACTION 05/13/2018 11:58 AM History: Abdominal pain x1 month. 1.4 mcg sincalide given iv for GBEF. Procedure: Serial static images are obtained of the liver and biliary system in the frontal projection following IV administration of 5.5 mCi of Technetium 99m Choletec. After filling of the gallbladder, 1.4 mcg of sincalide were infused over 30 minutes and dynamic imaging continued over this period. The gallbladder ejection fraction was calculated. Findings: There is prompt hepatic clearance of tracer from the blood pool. There is homogeneous distribution throughout the liver. The gallbladder ejection fraction measures 94% (normal gallbladder EF is 35% or greater). IMPRESSION: . 1. The cystic duct and common bile duct are patent. Negative for acute cholecystitis. 2. The gallbladder ejection fraction is 94% Electronically signed by: Huseyin Degroot MD (05/13/2018 12:00 PM) [id number]
== END | disposition home or self-care (01) ==
LOC: NM 07:59
PROVIDERS: ATTEND Internal Medicine Gastroenterology
DX: R10.13 Epigastric pain (principal)
CPT/HCPCS: 78227; A9537; J2805

== ENCOUNTER 2018-06-04 18:21 | Emergency (ER) | payer OTHER ==
[~2018-06-04] VITALS: Ht 165.1 cm; Wt 70.3 kg
[~2018-06-04 18:21] MED LIST changes: -SINCALIDE 1.4 MCG in IV NORMAL SALINE 50ML 30 ML IV ONE
--- NOTE | 2018-06-04 18:25 | ED.ADGEN ---
Past History Past Medical History: Anxiety, Bipolar, Cancer, Constipation, Ovarian Cyst Past Medical History Lt. eye- remove- Melanoma Past Surgical History: No Surgical History, Cholecystectomy, Other Smoking: Greater than 1 pack/day Alcohol Use: Occasionally Drug Use: None Adult General Chief Complaint Chief Complaint "... I had my gall bladder out on . Dr. Wallis did the surgery.. I have not been able to pee since the surgery. I have not been able to poop.... and I still hurting really bad up here on my stomach and rt. upper area... " HPI HPI Patient is a 27 year old female who presents with above hx and complaints , nausea, urinary retention, and constipation since surgery for removal of gallbladder on Wednesday at [facility] by Dr. Wallis. Patient has significant history of bipolar, anxiety disorder, melanoma of . Patient has had an appendectomy and tubal ligation. Patient currently rating her pain 8 -9 out of 10. Movement or deep breaths makes pain worse. Patient states she feels very distended. Patient is using Eric for urinary retention.. Pt. on a road trip to [facility] to pick[place] box [place] friends property from a possession of a vehicle. Patient states after the road trip she had increased constipation and generalized abdomen tenderness in right upper quadrant. No history of trauma. No history immunosuppression. No hx of colitis. Some hx of IBS like symptoms. Review of Systems Review of Systems Constitutional: Denies fever or chills [] Eyes: Denies change in visual acuity, redness, or eye pain [] HENT: Denies nasal congestion or sore throat [] Respiratory: Denies cough or shortness of breath [] Cardiovascular: No additional information not addressed in HPI [] GI:Complaints of abdominal pain, nausea,. Denies vomiting, bloody stools or diarrhea []Complaints of Constipation. : Denies dysuria or hematuria []Complaints of urinary retention. Musculoskeletal: Denies back pain or joint pain [] Integument: Denies rash or skin lesions [] Neurologic: Denies headache, focal weakness or sensory changes [] Endocrine: Denies polyuria or polydipsia [] All other systems were reviewed and found to be within normal limits, except as documented in this note. Family History Family History Non-contributory Current Medications Current Medications Current Medications Medications (Trade) Dose Ordered Sig/Arcadio Start Time Stop Time Status Last Admin Dose Admin Diphenhydramine HCl (Benadryl) 25 mg 1X ONCE 06/04/18 18:45 06/04/18 18:55 DC 06/04/18 18:55 25 MG Famotidine (Pepcid Vial) 20 mg 1X ONCE 06/04/18 18:45 06/04/18 18:55 DC 06/04/18 18:53 20 MG Info (Do NOT chart on this entry -- for MONITORING) 1 each PRN DAILY PRN 06/04/18 19:15 06/04/18 22:19 DC Iohexol (Omnipaque 240 Mg/ml) 30 ml 1X ONCE 06/04/18 19:00 06/04/18 19:07 DC 06/04/18 20:52 30 ML Iohexol (Omnipaque 300 Mg/ml) 75 ml 1X ONCE 06/04/18 19:00 06/04/18 19:07 DC 06/04/18 20:52 75 ML Ketorolac Tromethamine (Toradol 30mg Vial) 30 mg 1X ONCE 06/04/18 22:30 06/04/18 22:30 DC 06/04/18 22:12 30 MG Lactated Ringer's 1,000 ml @ 1,000 mls/hr Q1H 06/04/18 18:38 06/04/18 19:37 DC 06/04/18 18:53 1,000 MLS/HR Magnesium Hydroxide (Milk Of Magnesia) 2,400 mg 1X ONCE 06/04/18 18:45 06/04/18 18:55 DC 06/04/18 18:53 2,400 MG Morphine Sulfate (Morphine 10mg Syringe) 10 mg 1X ONCE 06/04/18 18:45 06/04/18 19:07 DC 06/04/18 18:55 10 MG Ondansetron HCl (Zofran) 8 mg 1X ONCE 06/04/18 18:45 06/04/18 18:55 DC 06/04/18 18:53 8 MG Allergies Allergies Allergies Coded Allergies Type Severity Reaction Last Updated Verified divalproex sodium Allergy Intermediate Hives 04/13/17 Yes hydrocodone Allergy Intermediate 06/04/18 Yes Physical Exam Physical Exam Constitutional: moderately acute distress, non-toxic appearance. [] HENT: Normocephalic, atraumatic, bilateral external ears normal, oropharynx moist, no oral exudates, nose normal. [] Eyes: Pupil reactive Rt.. Glass eye Lt. Neck: Normal range of motion, no tenderness, supple, no stridor. [] Cardiovascular:Heart rate regular rhythm, no murmur [] Lungs & Thorax: Bilateral breath sounds equal apexes with scattered wheezes on auscultation [] Abdomen: Bowel sounds decreased, soft, Rt. upper quadrant tenderness, no masses , no pulsatile masses. [] Distended. Mild Rebound to Rt. upper quadrant. Suture lines look stable and no inflammation. Old surgery scars. Pt. declines rectal or pelvic exam. Skin: Warm, dry, no erythema, no rash. [] Back: No tenderness, no CVA tenderness. [] Extremities: No tenderness, no cyanosis, no clubbing, ROM intact, no edema. [] No psoas or heel tap. Neurologic: Alert and oriented X 3, normal motor function, normal sensory function, no focal deficits noted. [] Psychologic: Affect very anxious, judgement normal, mood normal. [] Current Patient Data Vital Signs Vital Signs Date Time Temp Pulse Resp B/P (MAP) Pulse Ox O2 Delivery O2 Flow Rate FiO2 06/04/18 22:10 90 18 119/75 (90) 99 Room Air 06/04/18 18:33 98.2 Lab Results Laboratory Tests Test 06/04/18 18:40 06/04/18 18:45 Ethyl Alcohol Level < 10 mg/dL (0-10) White Blood Count 7.3 x10^3/uL (4.0-11.0) Red Blood Count 4.32 x10^6/uL (3.50-5.40) Hemoglobin 13.2 g/dL (12.0-15.5) Hematocrit 38.9 % (36.0-47.0) Mean Corpuscular Volume 90 fL (79-100) Mean Corpuscular Hemoglobin 31 pg (25-35) Mean Corpuscular Hemoglobin Concent 34 g/dL (31-37) Red Cell Distribution Width 14.0 % (11.5-14.5) Platelet Count 242 x10^3/uL (140-400) Neutrophils (%) (Auto) 52 % (31-73) Lymphocytes (%) (Auto) 35 % (24-48) Monocytes (%) (Auto) 6 % (0-9) Eosinophils (%) (Auto) 6 % (0-3) H Basophils (%) (Auto) 1 % (0-3) Neutrophils # (Auto) 3.8 x10^3uL (1.8-7.7) Lymphocytes # (Auto) 2.5 x10^3/uL (1.0-4.8) Monocytes # (Auto) 0.5 x10^3/uL (0.0-1.1) Eosinophils # (Auto) 0.4 x10^3/uL (0.0-0.7) Basophils # (Auto) 0.1 x10^3/uL (0.0-0.2) Prothrombin Time 10.4 SEC (9.4-11.4) Prothrombin Time INR 1.0 (0.9-1.1) PTT 25 SEC (23-33) Urine Collection Type Unknown Urine Color Yellow Urine Clarity Hazy Urine pH 8.0 Urine Specific [place] 1.020 Urine Protein 30 mg/dl (NEG-TRACE) Urine Glucose (UA) Neg mg/dL (NEG) Urine Ketones (Stick) Neg mg/dL (NEG) Urine Blood Mod (NEG) Urine Nitrite Neg (NEG) Urine Bilirubin Neg (NEG) Urine Urobilinogen Dipstick 2 mg/dL (0.2 mg/dL) Urine Leukocyte Esterase Neg (NEG) Urine RBC 6-10 /HPF (0-2) Urine WBC 1-4 /HPF (0-4) Urine Squamous Epithelial Cells Occ /LPF Urine Amorphous Sediment Present /HPF Urine Bacteria Few /HPF (0-FEW) Sodium Level 141 mmol/L (136-145) Potassium Level 3.7 mmol/L (3.5-5.1) Chloride Level 106 mmol/L (98-107) Carbon Dioxide Level 24 mmol/L (21-32) Anion Gap 11 (6-14) Blood Urea Nitrogen 12 mg/dL (7-20) Creatinine 0.7 mg/dL (0.6-1.0) Estimated GFR (Cockcroft-Gault) 102.0 Glucose Level 85 mg/dL (70-99) Calcium Level 8.6 mg/dL (8.5-10.1) Total Bilirubin 0.3 mg/dL (0.2-1.0) Direct Bilirubin 0.1 mg/dL (0.0-0.2) Aspartate Amino Transferase (AST) 18 U/L (15-37) Alanine Aminotransferase (ALT) 30 U/L (14-59) Alkaline Phosphatase 63 U/L (46-116) Troponin I Quantitative < 0.017 ng/mL (0-0.055) Total Protein 7.9 g/dL (6.4-8.2) Albumin 3.8 g/dL (3.4-5.0) Amylase Level 29 U/L (25-115) Lipase 88 U/L (73-393) Urine Opiates Screen Pos (NEG) Urine Methadone Screen Neg (NEG) Urine Barbiturates Neg (NEG) Urine Phencyclidine Screen Neg (NEG) Urine Amphetamine/Methamphetamine Neg (NEG) Urine Benzodiazepines Screen Neg (NEG) Urine Cocaine Screen Neg (NEG) Urine Cannabinoids Screen Neg (NEG) Urine Ethyl Alcohol Pos (NEG) EKG EKG [] Radiology/Procedures Radiology/Procedures I interpretation of acute abdomen film shows[]increased stool . Non- obstructive bowel gas pattern. Has surgical clips. No acute cardiopulmonary changes. IUD. Eric. CT of abd. shows no acute post surgery changes. Possible colon inflammatory changes such as colitis. Findings of constipation. See formal report. Course & Med Decision Making Course & Med Decision Making Pertinent Labs and Imaging studies reviewed. (See chart for details) Pt. to stay on clear fluid diet only x 48 rhs. No solids or milk products. Push clear fluids, fruit juices, jello. Allow bowel rest. Expect some cramping with passage of stool with MOM by morning. Keep follow up with surgery clinic. Consider eventual colon scopic exam if persistent hx of colitis or inflammatory bowel or IBS. Must keep follow up. Call Surgery clinic for follow up sooner if continue pain. Encourage pt. to stop smoking. Take tylenol and ibuprofen for pain. Return if any concerns. [] Final Impression Final Impression 1. Abdomen pain 2. Cholecystectomy -06/01/2018 3. Constipation 4. Urinary retention[] 5. Tobacco Use Dragon Disclaimer Dragon Disclaimer This electronic medical record was generated, in whole or in part, using a voice recognition dictation system. Discharge Summary Visit Information Final Diagnosis Problems Medical Problems: (1) Constipation Status: Acute Brief Hospital Course Allergies Allergies Coded Allergies Type Severity Reaction Last Updated Verified divalproex sodium Allergy Intermediate Hives 04/13/17 Yes hydrocodone Allergy Intermediate 06/04/18 Yes Vital Signs Vital Signs Date Time Temp Pulse Resp B/P (MAP) Pulse Ox O2 Delivery O2 Flow Rate FiO2 06/04/18 22:10 90 18 119/75 (90) 99 Room Air 06/04/18 18:33 98.2 Lab Results Laboratory Tests Test 06/04/18 18:40 06/04/18 18:45 Ethyl Alcohol Level < 10 mg/dL (0-10) White Blood Count 7.3 x10^3/uL (4.0-11.0) Red Blood Count 4.32 x10^6/uL (3.50-5.40) Hemoglobin 13.2 g/dL (12.0-15.5) Hematocrit 38.9 % (36.0-47.0) Mean Corpuscular Volume 90 fL (79-100) Mean Corpuscular Hemoglobin 31 pg (25-35) Mean Corpuscular Hemoglobin Concent 34 g/dL (31-37) Red Cell Distribution Width 14.0 % (11.5-14.5) Platelet Count 242 x10^3/uL (140-400) Neutrophils (%) (Auto) 52 % (31-73) Lymphocytes (%) (Auto) 35 % (24-48) Monocytes (%) (Auto) 6 % (0-9) Eosinophils (%) (Auto) 6 % (0-3) Basophils (%) (Auto) 1 % (0-3) Neutrophils # (Auto) 3.8 x10^3uL (1.8-7.7) Lymphocytes # (Auto) 2.5 x10^3/uL (1.0-4.8) Monocytes # (Auto) 0.5 x10^3/uL (0.0-1.1) Eosinophils # (Auto) 0.4 x10^3/uL (0.0-0.7) Basophils # (Auto) 0.1 x10^3/uL (0.0-0.2) Prothrombin Time 10.4 SEC (9.4-11.4) Prothromb Time International Ratio 1.0 (0.9-1.1) Activated Partial Thromboplast Time 25 SEC (23-33) Urine Collection Type Unknown Urine Color Yellow Urine Clarity Hazy Urine pH 8.0 Urine Specific [place] 1.020 Urine Protein 30 mg/dl (NEG-TRACE) Urine Glucose (UA) Neg mg/dL (NEG) Urine Ketones (Stick) Neg mg/dL (NEG) Urine Blood Mod (NEG) Urine Nitrite Neg (NEG) Urine Bilirubin Neg (NEG) Urine Urobilinogen Dipstick 2 mg/dL (0.2 mg/dL) Urine Leukocyte Esterase Neg (NEG) Urine RBC 6-10 /HPF (0-2) Urine WBC 1-4 /HPF (0-4) Urine Squamous Epithelial Cells Occ /LPF Urine Amorphous Sediment Present /HPF Urine Bacteria Few /HPF (0-FEW) Sodium Level 141 mmol/L (136-145) Potassium Level 3.7 mmol/L (3.5-5.1) Chloride Level 106 mmol/L (98-107) Carbon Dioxide Level 24 mmol/L (21-32) Anion Gap 11 (6-14) Blood Urea Nitrogen 12 mg/dL (7-20) Creatinine 0.7 mg/dL (0.6-1.0) Estimated GFR (Cockcroft-Gault) 102.0 Glucose Level 85 mg/dL (70-99) Calcium Level 8.6 mg/dL (8.5-10.1) Total Bilirubin 0.3 mg/dL (0.2-1.0) Direct Bilirubin 0.1 mg/dL (0.0-0.2) Aspartate Amino Transf (AST/SGOT) 18 U/L (15-37) Alanine Aminotransferase (ALT/SGPT) 30 U/L (14-59) Alkaline Phosphatase 63 U/L (46-116) Troponin I Quantitative < 0.017 ng/mL (0-0.055) Total Protein 7.9 g/dL (6.4-8.2) Albumin 3.8 g/dL (3.4-5.0) Amylase Level 29 U/L (25-115) Lipase 88 U/L (73-393) Urine Opiates Screen Pos (NEG) Urine Methadone Screen Neg (NEG) Urine Barbiturates Neg (NEG) Urine Phencyclidine Screen Neg (NEG) Urine Amphetamine/Methamphetamine Neg (NEG) Urine Benzodiazepines Screen Neg (NEG) Urine Cocaine Screen Neg (NEG) Urine Cannabinoids Screen Neg (NEG) Urine Ethyl Alcohol Pos (NEG) Brief Hospital Course Ms. Low is a 27 old female who presented with constipation and abd. pain Rt. upper quadrant. Pt. had cholecystectomy on Wednesday. Patient has not had a defecation since before surgery. Recent road trip to [facility] has seemed to make her more constipated and increase the suture site pain. Discharge Information Condition at Discharge: Improved, Stable Disposition/Orders: D/C to Home Dischare Medications Current Medications Lactated Ringer's 1,000 ml @ 1,000 mls/hr Q1H IV Last administered on 18:53; Admin Dose 1,000 MLS/HR; Start 06/04/18 at 18:38; Stop 06/04/18 at 19:37; Status DC Ondansetron HCl (Zofran) 8 mg 1X ONCE IV Last administered on 06/04/18 18:53 ; Admin Dose 8 MG; Start 06/04/18 at 18:45; Stop 06/04/18 at 18:55; Status DC Famotidine (Pepcid Vial) 20 mg 1X ONCE IVP Last administered on 06/04/18 18: 53; Admin Dose 20 MG; Start 06/04/18 at 18:45; Stop 06/04/18 at 18:55; Status DC Magnesium Hydroxide (Milk Of Magnesia) 2,400 mg 1X ONCE PO Last administered on 06/04/18 18:53; Admin Dose 2,400 MG; Start 06/04/18 at 18:45; Stop 06/04/18 at 18:55; Status DC Morphine Sulfate (Morphine 10mg Syringe) 10 mg 1X ONCE SQ Last administered on 06/04/18 18:55; Admin Dose 10 MG; Start 06/04/18 at 18:45; Stop 06/04/18 at 19:07; Status DC Diphenhydramine HCl (Benadryl) 25 mg 1X ONCE IV Last administered on 18:55; Admin Dose 25 MG; Start 06/04/18 at 18:45; Stop 06/04/18 at 18:55; Status DC Iohexol (Omnipaque 300 Mg/ml) 75 ml 1X ONCE IV Last administered on 06/04/18 20:52; Admin Dose 75 ML; Start 06/04/18 at 19:00; Stop 06/04/18 at 19:07; Status DC Iohexol (Omnipaque 240 Mg/ml) 30 ml 1X ONCE PO Last administered on 06/04/18at 20:52; Admin Dose 30 ML; Start 06/04/18 at 19:00; Stop 06/04/18 at 19:07; Status DC Info (Do NOT chart on this entry -- for MONITORING) 1 each PRN DAILY PRN MC SEE COMMENTS; Start 06/04/18 at 19:15; Stop 06/04/18 at 22:19; Status DC Ketorolac Tromethamine (Toradol 30mg Vial) 30 mg 1X ONCE IV Last administered on 06/04/18at 22:12; Admin Dose 30 MG; Start 06/04/18 at 22:30; Stop 06/04/18 at 22:30; Status DC Active Scripts Active Reglan (Metoclopramide Hcl) 10 Mg Tablet 1 Tab PO TID PRN Tessalon Perle (Benzonatate) 100 Mg Capsule 1 Cap PO TID Reported Doxepin Hcl 10 Mg Capsule 1 Cap PO QHS Carafate (Sucralfate) 1 Gm Tablet 1 Tab PO QID Prozac (Fluoxetine Hcl) 10 Mg Capsule 1 Cap PO [id number] Omeprazole 20 Mg Capsule.dr 1 Cap PO DAILY Ibuprofen 800 Mg Tablet 800 Mg PO Q4-6HRS PRN Vitamins ( Vits W-Ca,Fe,Fa(<1MG)) 1 Each Tablet 1 Each PO DAILY Dragon Disclaimer This chart was dictated in whole or in part using Voice Recognition software in a busy, high-work load, and often noisy Emergency Department environment. It may contain unintended and wholly unrecognized errors or omissions. KAVON LEI MD Jun 04, 2018 18:25
[2018-06-04] MEDS ORDERED: IV RINGERS SOLUTION,LACTATED 1,000 ML IV SCH (18:38)
[2018-06-04] MEDS ORDERED: ONDANSETRON PF 4 MG/2 ML VIAL. IV ONE (18:45)
[2018-06-04] MEDS ORDERED: diphenhydrAMINE 50 MG/ML VIAL IV ONE (18:45)
[2018-06-04] MEDS ORDERED: MORPHINE SULFATE 10 MG/ML SYRINGE. SQ ONE (18:45)
[2018-06-04] MEDS ORDERED: FAMOTIDINE 20 MG/2 ML VIAL IVP ONE (18:45)
[2018-06-04] MEDS ORDERED: MAGNESIUM HYDROXIDE 2,400 MG/30 ML ORAL.SUSP. PO ONE (18:45)
[2018-06-04] MEDS ORDERED: IOHEXOL 300 MG/ML 75 ML VIAL. IV ONE (19:00)
[2018-06-04] MEDS ORDERED: IOHEXOL 240 MG/ML 50ML VIAL. PO ONE (19:00)
[2018-06-04 19:04] LABS: BASO # 0.1 x10^3/uL (0.0-0.2); BASO % 1 % (0-3); EOS # 0.4 x10^3/uL (0.0-0.7); EOS % 6 % (0-3); HEMATOCRIT 38.9 % (36.0-47.0); HEMOGLOBIN 13.2 g/dL (12.0-15.5); LYMPH # 2.5 x10^3/uL (1.0-4.8); LYMPH % 35 % (24-48); MEAN CORPUSCULAR HEMOGLOBIN 31 pg (25-35); MEAN CORPUSCULAR HGB CONC 34 g/dL (31-37); MEAN CORPUSCULAR VOLUME 90 fL (79-100); MONO # 0.5 x10^3/uL (0.0-1.1); MONO % 6 % (0-9); NEUT # 3.8 x10^3uL (1.8-7.7); NEUT % 52 % (31-73); PLATELET COUNT 242 x10^3/uL (140-400); RED BLOOD COUNT 4.32 x10^6/uL (3.50-5.40); WHITE BLOOD COUNT 7.3 x10^3/uL (4.0-11.0)
[2018-06-04 19:13] LABS: BARBITURATES NEG (NEG); BENZODIAZEPINES NEG (NEG); CANNABINOIDS NEG (NEG); COCAINE NEG (NEG); METHADONE NEG (NEG); OPIATES POS (NEG); PHENCYCLIDINE NEG (NEG)
[2018-06-04] MEDS ORDERED: CONTRAST GIVEN MC PRN (19:15)
[2018-06-04 19:18] LABS: AMPHETAMINE/METHAMPHETAMINE NEG (NEG)
[2018-06-04 19:27] LABS: ALBUMIN 3.8 g/dL (3.4-5.0); CALCIUM 8.6 mg/dL (8.5-10.1); CREATININE 0.7 mg/dL (0.6-1.0); DIRECT BILIRUBIN 0.1 mg/dL (0.0-0.2); POTASSIUM 3.7 mmol/L (3.5-5.1); TOTAL BILIRUBIN 0.3 mg/dL (0.2-1.0); TOTAL PROTEIN 7.9 g/dL (6.4-8.2)
[2018-06-04 19:32] LABS: AMORPHOUS SEDIMENT,UR PRESENT /HPF; BACTERIA,URINE FEW /HPF (0-FEW); BILIRUBIN,URINE NEG (NEG); CLARITY,URINE HAZY; COLOR,URINE YELLOW; GLUCOSE,URINE NEG (NEG); NITRITE,URINE NEG (NEG); SQUAMOUS EPITHELIAL CELL,UR OCC /LPF; UROBILINOGEN,URINE 2 mg/dL (0.2 mg/dL)
--- NOTE | 2018-06-04 21:44 | RAD ---
Three-view acute abdominal series. HISTORY: Pain, recent cholecystectomy 3 views were taken for an acute abdominal series. Lungs are clear. Heart is normal in size without heart failure. There is no effusion. There is no free air on the upright view the abdomen. The stomach is mildly distended. There is an intrauterine contraceptive device in the pelvis. There is no bowel obstruction. There is mild to moderate stool in the colon. IMPRESSION: 1. No acute chest disease. 2. Moderate stool in the colon. 3. Mild gastric distention. 4. No bowel obstruction or other acute finding in the abdomen. Electronically signed by: Raj Cruz MD (06/04/2018 9:41 PM) [facility]
--- NOTE | 2018-06-04 21:51 | RAD ---
EXAM: CT ABDOMEN/PELVIS WITH CONTRAST. HISTORY: Abdominal pain after cholecystectomy. TECHNIQUE: Computed tomography of the abdomen and pelvis was performed after the intravenous administration of 75 mL Omnipaque 300. COMPARISON: 04/13/2017. FINDINGS: Lung windows through the visualized portions of the bases reveal mild atelectasis. Bone windows reveal no suspicious lesions. The gallbladder is surgically absent. There is no evidence of complication in the cholecystectomy bed. There is no biliary dilatation. There is mild wall thickening of the right colon. The cecum appears spared and is flipped into the midline. There is no small bowel obstruction. The appendix is surgically absent. The liver, spleen, pancreas, adrenal glands and kidneys are unremarkable. There are no pathologically enlarged lymph nodes. An intrauterine device is noted. The bladder is decompressed by a Eric catheter. IMPRESSION: 1. No evidence of complication status post cholecystectomy. 2. Mild wall thickening of the ascending and transverse colon. Correlate for colitis. *One or more of the following individualized dose reduction techniques were utilized for this examination: 1. Automated exposure control. 2. Adjustment of the mA and/or kV according to patient size. 3. Use of iterative reconstruction technique. Electronically signed by: Tino Zazueta MD (06/04/2018 9:48 PM) [facility]
[2018-06-04 22:10] VITALS: BP 119/75
[2018-06-04] MEDS ORDERED: KETOROLAC 30 MG/ML VIAL. IV ONE (22:30)
== END 2018-06-04 22:15 | disposition home or self-care (01) ==
LOC: ER 18:21
DX: K91.89 Other postprocedural complications and disorders of digestive system (principal); K59.00 Constipation, unspecified; R33.9 Retention of urine, unspecified; F17.200 Nicotine dependence, unspecified, uncomplicated; F41.9 Anxiety disorder, unspecified; F31.9 Bipolar disorder, unspecified; Z90.49 Acquired absence of other specified parts of digestive tract; Z88.5 Allergy status to narcotic agent; Z88.8 Allergy status to other drugs, medicaments and biological substances
CPT/HCPCS: 36415; 74022; 74177; 80048; 80076; 80307; 81001; 82150; 83690; 84484; 85025; 85610; 85730; 96372; 96374; 96375; 99285; G0480; J1200; J1885; J2270; J2405; J3490; J7120; Q9966; Q9967; 81025

== ENCOUNTER 2018-10-05 | Emergency (ER) | payer OTHER ==
[~2018-10-05] VITALS: Ht 165.1 cm; Wt 68.0 kg
[~2018-10-05] MED LIST changes: +OMEP20CA10 PO; -OMEP20CA9 PO
[2018-10-05 00:09] VITALS: BP 124/77
--- NOTE | 2018-10-05 01:04 | RAD ---
Three-view left knee dated 10/05/2018. No comparison available. CLINICAL INDICATION: Left knee pain. FINDINGS: 3 views left knee show normal bony alignment. No displaced fracture. Possible small knee joint effusion. No loose body. IMPRESSION: 1. No acute bony abnormality. 2. Possible small joint effusion. If there is clinical concern for internal derangement, MRI would better evaluate. Electronically signed by: Angelo Lambert MD (10/05/2018 1:01 AM) [facility]
--- NOTE | 2018-10-05 01:13 | PHYS DOC ---
Past History Past Medical History: Anxiety, Bipolar, Cancer, Constipation, Ovarian Cyst Past Surgical History: No Surgical History, Cholecystectomy, Other Smoking: Greater than 1 pack/day Alcohol Use: None Drug Use: None Adult General Chief Complaint Chief Complaint: KNEE INJURY HPI HPI Patient is a 28-year-old female who presents with complaint of left knee pain for the last couple of days. Patient states that she was helping move some things around when she turned her knee and felt a pop in her knee. She states that she has been having pain in her knee ever since and pain is getting worse with time and is worsened with weightbearing. She denies any other injuries.[] Review of Systems Review of Systems Constitutional: Denies fever or chills [] Respiratory: Denies cough or shortness of breath [] Cardiovascular: No additional information not addressed in HPI [] Musculoskeletal: Positive left knee pain [] Integument: Denies rash or skin lesions [] Allergies Allergies Allergies Coded Allergies Type Severity Reaction Last Updated Verified divalproex sodium Allergy Intermediate Hives 04/13/17 Yes hydrocodone Allergy Intermediate 06/04/18 Yes Physical Exam Physical Exam Constitutional: Well developed, well nourished, no acute distress, non-toxic appearance. [] Cardiovascular:Heart rate regular rhythm, no murmur [] Lungs & Thorax: Bilateral breath sounds clear to auscultation [] Extremities: Examination of left knee demonstrates tenderness to palpation around the bilateral joint lines. Patient does complain of pain with flexion of the knee. Ligamentous exam is stable. [] Neurologic: Alert and oriented X 3, no focal deficits noted. [] Current Patient Data Vital Signs Vital Signs Date Time Temp Pulse Resp B/P (MAP) Pulse Ox O2 Delivery O2 Flow Rate FiO2 10/05/18 00:09 99.0 76 14 99 Room Air Lab Results Laboratory Tests Test 10/05/18 00:35 POC Urine HCG, Qualitative hcg negative (Negative) EKG EKG [] Radiology/Procedures Radiology/Procedures [] Impressions: PROCEDURE: KNEE LEFT 3V Three-view left knee dated 10/05/2018. No comparison available. CLINICAL INDICATION: Left knee pain. FINDINGS: 3 views left knee show normal bony alignment. No displaced fracture. Possible small knee joint effusion. No loose body. IMPRESSION: 1. No acute bony abnormality. 2. Possible small joint effusion. If there is clinical concern for internal derangement, MRI would better evaluate. Electronically signed by: Angelo Lambert MD (10/05/2018 1:01 AM) [facility] Course & Med Decision Making Course & Med Decision Making Pertinent Labs and Imaging studies reviewed. (See chart for details) Patient placed in knee immobilizer by ER nurse and provided with crutches. Dragon Disclaimer Dragon Disclaimer This electronic medical record was generated, in whole or in part, using a voice recognition dictation system. Departure Departure: Impression: Primary Impression: Left knee sprain Disposition: HOME, SELF-CARE Condition: STABLE Referrals: AMAN GREGG MD (PCP) Patient Instructions: Knee Sprain Scripts Diclofenac Sodium (DICLOFENAC SODIUM) 50 Mg Tablet.dr 1 TAB PO BID PRN for PAIN, #20 TAB Prov: YESSICA VASQUEZ Jr. DO 10/05/18 Tramadol Hcl (TRAMADOL HCL) 50 Mg Tablet 50 MG PO PRN Q6HRS PRN for PAIN, #15 TAB Prov: YESSICA VASQUEZ Jr. DO 10/05/18 Problem Qualifiers Primary Impression: Left knee sprain Encounter type: initial encounter Involved ligament of knee: unspecified ligament Qualified Codes: S83.92XA - Sprain of unspecified site of left knee, initial encounter YESSICA VASQUEZ Jr. DO Oct 05, 2018 01:13
[2018-10-05] MEDS ORDERED: TRAM50TA PO (01:54)
[2018-10-05] MEDS ORDERED: DICL50TA4 PO (01:54)
[2018-10-05] MEDS ORDERED: traMADol 50 MG TABLET PO ONE (02:00)
== END 2018-10-05 02:18 | disposition home or self-care (01) ==
LOC: ER
DX: S83.92XA Sprain of unspecified site of left knee, initial encounter (principal); F17.200 Nicotine dependence, unspecified, uncomplicated; Z88.5 Allergy status to narcotic agent; Z88.8 Allergy status to other drugs, medicaments and biological substances; X50.9XXA Other and unspecified overexertion or strenuous movements or postures, initial encounter; Y93.89 Activity, other specified; Y92.89 Other specified places as the place of occurrence of the external cause; Y99.8 Other external cause status
CPT/HCPCS: 29505; 36415; 73562; 81025; 85379; 99285

== ENCOUNTER 2018-11-21 05:34 | Emergency (ER) | payer OTHER ==
[~2018-11-21] VITALS: Ht 165.1 cm; Wt 68.0 kg
[~2018-11-21 05:34] MED LIST changes: +DICL50TA4 PO; +TRAM50TA PO
[2018-11-21] MEDS ORDERED: LIDOCAINE 1% Multi-Dose 20 ML VIAL. IJ ONE (06:30)
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
--- NOTE | 2018-11-21 07:00 | RAD ---
EXAM: Right finger 3 views. HISTORY: Third digit injury. COMPARISON: None. FINDINGS: No fractures are identified. Joint spaces and alignment are maintained. IMPRESSION: 1. No fracture. Electronically signed by: Tino Zazueta MD (11/21/2018 6:57 AM) [facility]
== END 2018-11-21 06:48 | disposition home or self-care (01) ==
LOC: ER 05:34
DX: S61.411A Laceration without foreign body of right hand, initial encounter (principal); F17.200 Nicotine dependence, unspecified, uncomplicated; Z88.5 Allergy status to narcotic agent; Z88.8 Allergy status to other drugs, medicaments and biological substances; W26.8XXA Contact with other sharp object(s), not elsewhere classified, initial encounter; Y93.89 Activity, other specified; Y92.89 Other specified places as the place of occurrence of the external cause; Y99.8 Other external cause status
CPT/HCPCS: 12001; 73140; 99284

== ENCOUNTER → 2019-01-17 | Outpatient (CLI) | payer SELFPAY ==
[2018-11-21 05:42] VITALS: BP 121/77
[2019-01-17 17:17] LABS: BASO % 1 % (0-3); EOS # 0.1 x10^3/uL (0.0-0.7); EOS % 2 % (0-3); HEMATOCRIT 39.2 % (36.0-47.0); HEMOGLOBIN 12.9 g/dL (12.0-15.5); LYMPH # 1.8 x10^3/uL (1.0-4.8); LYMPH % 35 % (24-48); MEAN CORPUSCULAR HEMOGLOBIN 31 pg (25-35); MEAN CORPUSCULAR HGB CONC 33 g/dL (31-37); MEAN CORPUSCULAR VOLUME 93 fL (79-100); MONO # 0.4 x10^3/uL (0.0-1.1); MONO % 8 % (0-9); NEUT # 2.8 x10^3uL (1.8-7.7); NEUT % 55 % (31-73); PLATELET COUNT 176 x10^3/uL (140-400); RED BLOOD COUNT 4.22 x10^6/uL (3.50-5.40); RED CELL DISTRIBUTION WIDTH 13.7 % (11.5-14.5)
[2019-01-17 17:27] LABS: ALBUMIN 4.3 g/dL (3.4-5.0); ALBUMIN/GLOBULIN RATIO 1.2 (1.0-1.7); CALCIUM 8.9 mg/dL (8.5-10.1); CREATININE 0.7 mg/dL (0.6-1.0); GFR 101.1; POTASSIUM 3.6 mmol/L (3.5-5.1); TOTAL BILIRUBIN 0.3 mg/dL (0.2-1.0); TOTAL PROTEIN 7.9 g/dL (6.4-8.2)
[2019-01-18 13:38] LABS: THYROID STIM HORMONE (TSH) 0.927 uIU/mL (0.358-3.740)
== END | disposition home or self-care (01) ==
LOC: LAB 16:46
PROVIDERS: ATTEND Family Medicine
DX: R55 Syncope and collapse (principal)
CPT/HCPCS: 36415; 80053; 80061; 84439; 84443; 84702; 85025

== ENCOUNTER 2019-09-11 15:50 | Emergency (ER) | payer SELFPAY ==
[~2019-09-11] VITALS: Ht 165.1 cm; Wt 75.3 kg
[~2019-09-11 15:50] MED LIST changes: -OMEP20CA10 PO; +OMEP20CA16 PO
[2019-09-11] MEDS ORDERED: ORPH-16 PO (16:24)
[2019-09-11] MEDS ORDERED: PRED20TA PO (16:24)
--- NOTE | 2019-09-11 16:24 | PHYS DOC ---
Past History Past Medical History: Anxiety, Bipolar, Cancer, Constipation, Ovarian Cyst Past Surgical History: Appendectomy, Cholecystectomy, Other Smoking: Greater than 1 pack/day Alcohol Use: None Drug Use: None General Adult EDM: Chief Complaint: BACK PAIN OR INJURY HPI: HPI: Patient is a [age] year old [sex] who presents with [] Review of Systems: Review of Systems: Constitutional: Denies fever or chills Eyes: Denies change in visual acuity HENT: Denies nasal congestion or sore throat Respiratory: Denies cough or shortness of breath Cardiovascular: Denies chest pain or edema GI: Denies abdominal pain, nausea, vomiting, bloody stools or diarrhea : Denies dysuria Musculoskeletal: Denies back pain or joint pain Integument: Denies rash Neurologic: Denies headache, focal weakness or sensory changes Endocrine: Denies polyuria or polydipsia Lymphatic: Denies swollen glands Psychiatric: Denies depression or anxiety Heart Score: Risk Factors: Risk Factors: DM, Current or recent (<one month) smoker, HTN, HLP, family history of CAD, obesity. Risk Scores: Score 0 - 3: 2.5% MACE over next 6 weeks - Discharge Home Score 4 - 6: 20.3% MACE over next 6 weeks - Admit for Clinical Observation Score 7 - 10: 72.7% MACE over next 6 weeks - Early Invasive Strategies Allergies: Allergies: Allergies Coded Allergies Type Severity Reaction Last Updated Verified divalproex sodium Allergy Intermediate Hives 04/13/17 Yes hydrocodone Allergy Intermediate 06/04/18 Yes Physical Exam: PE: Constitutional: Well developed, well nourished, no acute distress, non-toxic appearance. [] HENT: Normocephalic, atraumatic, bilateral external ears normal, oropharynx moist, no oral exudates, nose normal. [] Eyes: PERRLA, EOMI, conjunctiva normal, no discharge. [] Neck: Normal range of motion, no tenderness, supple, no stridor. [] Cardiovascular:Heart rate regular rhythm, no murmur [] Lungs & Thorax: Bilateral breath sounds clear to auscultation [] Abdomen: Bowel sounds normal, soft, no tenderness, no masses, no pulsatile masses. [] Skin: Warm, dry, no erythema, no rash. [] Back: No tenderness, no CVA tenderness. [] Extremities: No tenderness, no cyanosis, no clubbing, ROM intact, no edema. [] Neurologic: Alert and oriented X 3, normal motor function, normal sensory function, no focal deficits noted. [] Psychologic: Affect normal, judgement normal, mood normal. [] EKG: EKG: [] Radiology/Procedures: Radiology/Procedures: [] Course & Med Decision Making: Course & Med Decision Making Pertinent Labs and Imaging studies reviewed. (See chart for details) [] Dragon Disclaimer: Dragon Disclaimer: This electronic medical record was generated, in whole or in part, using a voice recognition dictation system. Departure Departure: Impression: Primary Impression: Back pain Qualified Codes: M54.5 - Low back pain Disposition: HOME/RESIDENCE PRIOR TO ADM Condition: STABLE Referrals: GUS BUI MD (PCP) Patient Instructions: Back Pain, Adult, [id number] Additional Instructions: May also use over the counter Tylenol and/or Ibuprofen for pain. ICE area 20 min on then leave off for next 20 min. Repeat several times daily as needed for pain for next few days. Call and make an appointment to see Pain management: Evangelista Rincon M.D. [id number], [address] [place], [place] [address] Scripts Prednisone (PREDNISONE) 20 Mg Tablet 1 TAB PO BID for Back pain, #8 TAB Start this medication tomorrow, Wednesday09/12/19 Prov: MERCEDES NAVARRO DO 09/11/19 Orphenadrine Citrate (ORPHENADRINE CITRATE) 100 Mg Tablet.er 1 TAB PO BID PRN for MUSCLE PAIN, #14 TAB 0 Refills Prov: MERCEDES NAVARRO DO 09/11/19 Justification of Admission: Justification of Admission: Justification of Admission Dx: N/A MERCEDES NAVARRO DO Sep 11, 2019 16:24
[2019-09-11] MEDS ORDERED: ORPHENADRINE CITRATE 60 MG/2 ML VIAL. IM ONE (16:30)
[2019-09-11] MEDS ORDERED: KETOROLAC 30 MG/ML VIAL. IM ONE (16:30)
[2019-09-11] MEDS ORDERED: DEXAMETHASONE 4 MG TABLET PO ONE (16:30)
[2019-09-11 16:40] VITALS: BP 107/68
== END 2019-09-11 16:40 | disposition home or self-care (01) ==
LOC: ER 15:50
DX: M54.5 Low back pain (principal); F41.9 Anxiety disorder, unspecified; F31.9 Bipolar disorder, unspecified; F17.200 Nicotine dependence, unspecified, uncomplicated; Z90.89 Acquired absence of other organs; Z90.49 Acquired absence of other specified parts of digestive tract; Z98.890 Other specified postprocedural states; Z85.9 Personal history of malignant neoplasm, unspecified; Z88.5 Allergy status to narcotic agent; Z88.8 Allergy status to other drugs, medicaments and biological substances
CPT/HCPCS: 96372; 99284; J1885; J2360; J8540

== ENCOUNTER 2020-03-02 18:09 | Emergency (ER) | payer SELFPAY ==
[~2020-03-02] VITALS: Ht 165.1 cm; Wt 75.3 kg
[~2020-03-02 18:09] MED LIST changes: +ORPH-16 PO; +PRED20TA PO
[2020-03-02] MEDS ORDERED: IV RINGERS SOLUTION,LACTATED 1,000 ML IV ONE (19:15)
[2020-03-02] MEDS ORDERED: ACETAMINOPHEN 325 MG TABLET PO ONE (19:15)
[2020-03-02] MEDS ORDERED: METOCLOPRAMIDE HCL 10 MG/2 ML VIAL. IVP ONE (19:15)
[2020-03-02] MEDS ORDERED: DICYCLOMINE HCL 10 MG CAPSULE PO ONE (19:15)
[2020-03-02 19:48] LABS: BASO % 1 % (0-3); EOS % 1 % (0-3); HEMOGLOBIN 12.5 g/dL (12.0-15.5); LYMPH # 2.1 x10^3/uL (1.0-4.8); LYMPH % 33 % (24-48); MEAN CORPUSCULAR HEMOGLOBIN 31 pg (25-35); MEAN CORPUSCULAR HGB CONC 33 g/dL (31-37); MEAN CORPUSCULAR VOLUME 93 fL (79-100); MONO # 0.5 x10^3/uL (0.0-1.1); MONO % 8 % (0-9); NEUT # 3.5 x10^3uL (1.8-7.7); NEUT % 57 % (31-73); PLATELET COUNT 194 x10^3/uL (140-400); RED BLOOD COUNT 4.09 x10^6/uL (3.50-5.40); RED CELL DISTRIBUTION WIDTH 13.2 % (11.5-14.5); WHITE BLOOD COUNT 6.2 x10^3/uL (4.0-11.0)
[2020-03-02 19:56] LABS: CALCIUM 8.8 mg/dL (8.5-10.1); CREATININE 0.7 mg/dL (0.6-1.0); GFR 100.4; POTASSIUM 3.5 mmol/L (3.5-5.1)
[2020-03-02 20:00] LABS: ALBUMIN 4.2 g/dL (3.4-5.0); ALBUMIN/GLOBULIN RATIO 1.1 (1.0-1.7); TOTAL BILIRUBIN 0.3 mg/dL (0.2-1.0); TOTAL PROTEIN 7.9 g/dL (6.4-8.2)
--- NOTE | 2020-03-02 20:12 | PHYS DOC ---
Past History Past Medical History: Anxiety, Bipolar, Cancer, Constipation, Ovarian Cyst Past Surgical History: Appendectomy, Cholecystectomy, Other Additional Past Surgical Histo: LEFT OOPHORECTOMY, CARPAL TUNNEL SURGERY, R EYE REMOVED Smoking: Cigarettes, Greater than 1 pack/day Alcohol Use: None Drug Use: None Adult General Chief Complaint Chief Complaint: ABDOMINAL PAIN IN HPI HPI Patient is a 29-year-old female, who presents with a chief complaint of lower abdominal cramping and vaginal bleeding stating she is approximately 6 weeks . States that over the last day she has had midline lower abdomen cramping, 6 out of 10, relatively constant with some radiation bilaterally across inguinal ligaments. States that yesterday she had a small amount of vaginal bleeding that has now stopped. States she has had some nausea associated with but no vomiting. Denies any recent traumas, travels, illnesses, known ill contacts, fevers, chest pain, shortness of breath. Denies any other vaginal bleeding, discharge, pain, history of STIs, gushes of fluid, dysuria or hematuria. Review of Systems Review of Systems Review of systems otherwise unremarkable except for noted in HPI. Current Medications Current Medications Current Medications Medications (Trade) Dose Ordered Sig/Arcadio Start Time Stop Time Status Last Admin Dose Admin Acetaminophen (Tylenol) 650 mg 1X ONCE 03/02/20 19:15 03/02/20 19:35 DC 03/02/20 19:34 650 MG Dicyclomine HCl (Bentyl) 10 mg 1X ONCE 03/02/20 19:15 03/02/20 19:35 DC Lactated Ringer's 1,000 ml @ 1,000 mls/hr 1X ONCE 03/02/20 19:15 03/02/20 20:14 03/02/20 19:34 1,000 MLS/HR Metoclopramide HCl (Reglan Vial) 10 mg 1X ONCE 03/02/20 19:15 03/02/20 19:35 DC 03/02/20 19:46 10 MG Allergies Allergies Allergies Coded Allergies Type Severity Reaction Last Updated Verified divalproex sodium Allergy Intermediate Hives 09/11/19 Yes Physical Exam Physical Exam Constitutional: Well developed, well nourished, no acute distress, non-toxic appearance. [] HENT: Normocephalic, atraumatic, bilateral external ears normal, oropharynx moist, no oral exudates, nose normal. [] Eyes: PERRLA, EOMI, conjunctiva normal, no discharge. [] Cardiovascular: Tachycardia, regular rhythm on monitor and by palpation, no murmur Lungs & Thorax: Bilateral breath sounds clear to auscultation [] Abdomen: Normal bowel sounds, soft, no rebound, mild tenderness in the suprapubic region to palpation Skin: Warm, dry, no erythema, no rash. [] Back: No tenderness, no CVA tenderness. [] Extremities: No tenderness, no cyanosis, no clubbing, ROM intact, no edema. [] Neurologic: Alert and oriented X 3, normal motor function, normal sensory function, no focal deficits noted. [] Psychologic: Affect normal, judgement normal, mood normal. [] Current Patient Data Vital Signs Vital Signs Date Time Temp Pulse Resp B/P (MAP) Pulse Ox O2 Delivery O2 Flow Rate FiO2 03/02/20 18:19 97.4 110 18 131/79 (96) 99 Room Air Lab Results Laboratory Tests Test 03/02/20 19:17 03/02/20 19:21 Urine Collection Type Unknown Urine Color Colorless Urine Clarity Clear Urine pH 7.0 Urine Specific Plummer 1.015 Urine Protein Neg Urine Glucose (UA) Neg mg/dL Urine Ketones (Stick) Trace mg/dL Urine Blood Neg Urine Nitrite Neg Urine Bilirubin Neg Urine Urobilinogen Dipstick 0.2 mg/dL Urine Leukocyte Esterase Neg Urine RBC 0 /HPF Urine WBC 0 /HPF Urine Squamous Epithelial Cells Mod /LPF Urine Bacteria 0 /HPF Maternal Serum HCG Beta Subunit 35042 mIU/mL Sodium Level 138 mmol/L Potassium Level 3.5 mmol/L Chloride Level 103 mmol/L Carbon Dioxide Level 24 mmol/L Anion Gap 11 Blood Urea Nitrogen 6 mg/dL Creatinine 0.7 mg/dL Estimated GFR (Cockcroft-Gault) 100.4 BUN/Creatinine Ratio 9 Glucose Level 82 mg/dL Calcium Level 8.8 mg/dL Total Bilirubin 0.3 mg/dL Aspartate Amino Transf (AST/SGOT) 14 U/L Alanine Aminotransferase (ALT/SGPT) 19 U/L Alkaline Phosphatase 50 U/L Total Protein 7.9 g/dL Albumin 4.2 g/dL Albumin/Globulin Ratio 1.1 White Blood Count 6.2 x10^3/uL Red Blood Count 4.09 x10^6/uL Hemoglobin 12.5 g/dL Hematocrit 38.0 % Mean Corpuscular Volume 93 fL Mean Corpuscular Hemoglobin 31 pg Mean Corpuscular Hemoglobin Concent 33 g/dL Red Cell Distribution Width 13.2 % Platelet Count 194 x10^3/uL Neutrophils (%) (Auto) 57 % Lymphocytes (%) (Auto) 33 % Monocytes (%) (Auto) 8 % Eosinophils (%) (Auto) 1 % Basophils (%) (Auto) 1 % Neutrophils # (Auto) 3.5 x10^3uL Lymphocytes # (Auto) 2.1 x10^3/uL Monocytes # (Auto) 0.5 x10^3/uL Eosinophils # (Auto) 0.0 x10^3/uL Basophils # (Auto) 0.0 x10^3/uL Current Medications Medications (Trade) Dose Ordered Sig/Arcadio Route PRN Reason Start Time Stop Time Status Last Admin Dose Admin Lactated Ringer's 1,000 ml @ 1,000 mls/hr 1X ONCE IV 03/02/20 19:15 03/02/20 20:14 DC 03/02/20 19:34 Metoclopramide HCl (Reglan Vial) 10 mg 1X ONCE IVP 03/02/20 19:15 03/02/20 19:35 DC 03/02/20 19:46 Dicyclomine HCl (Bentyl) 10 mg 1X ONCE PO 03/02/20 19:15 03/02/20 19:35 DC 03/02/20 20:34 Acetaminophen (Tylenol) 650 mg 1X ONCE PO 03/02/20 19:15 03/02/20 19:35 DC 03/02/20 19:34 EKG EKG [] Radiology/Procedures Radiology/Procedures []IMPRESSION: 1. Gestational sac measuring 1.9 cm without evidence of pole. Findings suspicious but not diagnostic of failure. Recommend follow-up ultrasound in 7-14 days. Electronically signed by: Vinh Mac MD (03/02/2020 9:31 PM) [id number] Heart Score Risk Factors: Risk Factors: DM, Current or recent (<one month) smoker, HTN, HLP, family history of CAD, obesity. Risk Scores: Risk Factors: DM, Current or recent (<one month) smoker, HTN, HLP, family history of CAD, obesity. Course & Med Decision Making Course & Med Decision Making Patient is a 29-year-old female, , approximately 6 weeks by home test who presents with abdominal cramping and an episode of vaginal bleeding Vital signs notable for tachycardia. Physical exam noted above. Patient placed on the monitor. Given fluid bolus, Reglan and Bentyl for nausea and cramping. Symptoms resolved while in ED. laboratory analysis not concerning. Wet prep not concerning. Imaging noted above showing evidence of gestational sac without pole suggestive of failure. Discussed all findings with patient and recommended calling her TELECOMMUNICATIONS REPAIRER first thing Wednesday morning to discuss her ED visit and need for repeat ultrasound in 7 to 14 days and beta-hCG follow-up. Advised Tylenol, ibuprofen and diphenhydramine at home as needed for cramping and nausea. Advised to come back to the emergency department immediately with new or concerning symptoms. Patient grateful, verbalized understanding and agreed with plan of discharge. [] Dragon Disclaimer Dragon Disclaimer This electronic medical record was generated, in whole or in part, using a voice recognition dictation system. Departure Departure: Referrals: GUS BUI MD (PCP) Patient Instructions: Abdominal Pain (Nonspecific), Abdominal Pain During HERMELINDO BAKER MD Mar 02, 2020 20:12
[2020-03-02 20:32] LABS: BACTERIA,URINE 0 /HPF (0-FEW); BILIRUBIN,URINE NEG (NEG); CLARITY,URINE CLEAR; COLOR,URINE COLORLESS; GLUCOSE,URINE NEG (NEG); NITRITE,URINE NEG (NEG); RBC,URINE 0 /HPF (0-2); SQUAMOUS EPITHELIAL CELL,UR MOD /LPF; UROBILINOGEN,URINE 0.2 mg/dL (0.2 mg/dL); WBC,URINE 0 /HPF (0-4)
--- NOTE | 2020-03-02 21:40 | RAD ---
Examination: Obstetric ultrasound HISTORY: History of vaginal bleeding COMPARISON: None available. FINDINGS: The uterus measures 11.3 x 6.7 x 6.2 cm. The right ovary measures 2.6 x 2.4 x 2.2 cm. There is a cyst ic structure identified in the right ovary measuring 1.5 cm likely a cyst. Cystic structure identifie d in the uterus measuring 1.9 cm probably gestational sac. No evidence of yolk sac or pole iden tified.The left ovary is not identified. Trace fluid identified adjacent to gestational sac. IMPRESSION: 1. Gestational sac measuring 1.9 cm without evidence of pole. Findings suspicious but not diagn ostic of failure. Recommend follow-up ultrasound in 7-14 days. Electronically signed by: Vinh Mac MD (03/02/2020 9:31 PM) [id number]
[2020-03-02 22:05] VITALS: BP 108/64
== END 2020-03-02 22:21 | disposition home or self-care (01) ==
LOC: ER 18:09
DX: O46.91 Antepartum hemorrhage, unspecified, first trimester (principal); R10.30 Lower abdominal pain, unspecified; R11.0 Nausea; F41.9 Anxiety disorder, unspecified; F31.9 Bipolar disorder, unspecified; F17.210 Nicotine dependence, cigarettes, uncomplicated; Z90.89 Acquired absence of other organs; Z90.49 Acquired absence of other specified parts of digestive tract; Z98.890 Other specified postprocedural states; Z88.8 Allergy status to other drugs, medicaments and biological substances
CPT/HCPCS: 36415; 76817; 80053; 81001; 84702; 85025; 87480; 87510; 87660; 96361; 96374; 99284; J2765; J7120; Q0111

== ENCOUNTER 2020-06-09 06:10 | Emergency (ER) | payer SELFPAY ==
[~2020-06-09] VITALS: Ht 165.1 cm; Wt 69.1 kg
[2020-06-09] MEDS ORDERED: ONDANSETRON PF 4 MG/2 ML VIAL. IVP ONE ×2 (06:15→08:00)
[2020-06-09] MEDS ORDERED: IV NORMAL SALINE 1,000ML 1,000 ML IV ONE (06:15)
[2020-06-09] MEDS ORDERED: PANTOPRAZOLE IV 40 MG VIAL. IVP ONE (06:30)
[2020-06-09] MEDS ORDERED: MORPHINE SULFATE 4 MG/ML DISP.SYRIN. IV ONE ×2 (06:30→08:15)
--- NOTE | 2020-06-09 06:33 | PHYS DOC ---
Past History Past Medical History: Anxiety, Bipolar, Cancer, Constipation, Ovarian Cyst Past Surgical History: Appendectomy, Cholecystectomy, Other Additional Past Surgical Histo: LEFT OOPHORECTOMY, CARPAL TUNNEL SURGERY, R EYE REMOVED Smoking: Cigarettes, Greater than 1 pack/day Alcohol Use: None Drug Use: None General Adult EDM: Chief Complaint: ABDOMINAL PAIN HPI: HPI: 29-year-old female presents with epigastric abdominal pain and vomiting. The patient woke up at 1 AM with epigastric pain and then started vomiting. The first episode had coffee grounds and the next 2 had dark blood and some blood clots. The patient has never had hematemesis. She denies drug use or alcohol. She is a cigarette smoker. She has been taking 800 mg of ibuprofen at least twice a day and sometimes 4 times a day for at least the last 2 weeks. She recently had a D&C after a miscarriage and was taking it for pain. She also admits to weight loss recently due to decreased appetite and food intake. She denies diarrhea, fever, chills. Review of Systems: Review of Systems: Constitutional: Denies fever or chills Eyes: Denies change in visual acuity HENT: Denies nasal congestion or sore throat Respiratory: Denies cough or shortness of breath Cardiovascular: Denies chest pain or edema GI: Epigastric abdominal pain, nausea, vomiting with blood. Denies diarrhea or dark stools. : Denies dysuria Musculoskeletal: Denies back pain or joint pain Integument: Denies rash Neurologic: Denies headache, focal weakness or sensory changes Endocrine: Denies polyuria or polydipsia Lymphatic: Denies swollen glands Psychiatric: Denies depression or anxiety Current Medications: Current Meds: Current Medications Medications (Trade) Dose Ordered Sig/[facility] Start Time Stop Time Status Last Admin Dose Admin Ondansetron HCl (Zofran) 4 mg 1X ONCE 06/09/20 06:15 06/09/20 06:22 DC 06/09/20 06:28 4 MG Pantoprazole Sodium (Protonix Vial) 80 mg 1X ONCE 06/09/20 06:30 06/09/20 06:31 Sodium Chloride 1,000 ml @ 1,000 mls/hr 1X ONCE 06/09/20 06:15 06/09/20 07:14 06/09/20 06:28 1,000 MLS/HR Allergies: Allergies: Allergies Coded Allergies Type Severity Reaction Last Updated Verified divalproex sodium Allergy Intermediate Hives 09/11/19 Yes Physical Exam: PE: Constitutional: Well developed, well nourished, mild acute distress, non-toxic appearance. [] HENT: Normocephalic, atraumatic, bilateral external ears normal, oropharynx moist, no oral exudates, nose normal. [] Eyes: PERRLA, EOMI, conjunctiva normal, no discharge. [] Neck: Normal range of motion, no tenderness, supple, no stridor. [] Cardiovascular: Heart rate regular rhythm, no murmur [] Lungs & Thorax: Bilateral breath sounds clear to auscultation [] Abdomen: Bowel sounds normal, soft, moderate epigastric tenderness, no masses, no pulsatile masses. [] Skin: Warm, dry, no erythema, no rash. [] Back: No tenderness, no CVA tenderness. [] Extremities: No tenderness, no cyanosis, no clubbing, ROM intact, no edema. [] Neurologic: Alert and oriented X 3, normal motor function, normal sensory function, no focal deficits noted. [] Psychologic: Affect normal, judgement normal, mood normal. [] EKG: EKG: [] Radiology/Procedures: Radiology/Procedures: [] Impressions: CT ABDOMEN+PELVIS W History: Reason: epigastric pain, hematemesis Omni 300 75cc / Spl. Instructions: / History: Technique: After the administration of intravenous contrast, CT imaging was performed of the abdomen and pelvis. Multiplanar images are reviewed. Exposure: One or more of the following individualized dose reduction techniques were utilized for this examination: 1. Automated exposure control 2. Adjustment of the mA and/or kV according to patient size 3. Use of iterative reconstruction technique. Comparison: June 04, 2018 Findings: Lower chest: No consolidation or pleural effusion. Abdomen and pelvis: The liver, spleen, adrenal glands, and pancreas are unremarkable. Prior cholecystectomy. Prominence of the bile ducts likely due to postcholecystectomy state. Normal appearance the kidneys. No hydronephrosis. Decompressed urinary bladder. Prior appendectomy. No evidence of bowel obstruction. No pathologic lymphadenopathy. No ascites. Right ovarian follicle measures 1.7 cm. Bones: No pathologic osseous lesions. Impression: 1. No acute abdominal or pelvic pathology. Electronically signed by: Kirk Sanchez DO (06/09/2020 7:39 AM) [facility] DICTATED AND SIGNED BY: KIRK SANCHEZ DO DATE: 06/09/20 0731 CC: DELTA WADE DO; GUS BUI MD ~MTH0 0 Heart Score: C/O Chest Pain: N/A Risk Factors: Risk Factors: DM, Current or recent (<one month) smoker, HTN, HLP, family history of CAD, obesity. Risk Scores: Score 0 - 3: 2.5% MACE over next 6 weeks - Discharge Home Score 4 - 6: 20.3% MACE over next 6 weeks - Admit for Clinical Observation Score 7 - 10: 72.7% MACE over next 6 weeks - Early Invasive Strategies Course & Med Decision Making: Course & Med Decision Making Pertinent Labs and Imaging studies reviewed. (See chart for details) The patient CBC is within normal limits. Her CMP is unremarkable. She is not . CT of the abdomen pelvis does not show any significant findings. I have given the patient 80 mg of Protonix IV as well as 4 mg of Zofran and a liter of normal saline. For pain I have given her 4 mg of morphine. This has helped significantly with her pain. She is still nauseous and had 1 more episode of vomiting. I have given her additional 4 mg of Zofran and 10 mg of Compazine. The patient's vomiting was controlled after the second round of medication. She was given an additional 4 mg of morphine for her pain. I will discharge her with a prescription for Zofran ODT as well as [place] 5/325. She is stable for discharge at this time. If she continues to have hematemesis, she may need to return for further GI evaluation. [] Dragon Disclaimer: Dragon Disclaimer: This electronic medical record was generated, in whole or in part, using a voice recognition dictation system. Departure Departure: Impression: Primary Impression: Hematemesis Qualified Codes: K92.0 - Hematemesis Additional Impression: Gastric ulcer due to nonsteroidal antiinflammatory drug (NSAID) therapy Disposition: HOME / SELF CARE / HOMELESS Condition: STABLE Referrals: GUS BUI MD (PCP) Patient Instructions: Hematemesis, Peptic Ulcer Disease, Jogb-lp-Vohs Scripts Ondansetron (ONDANSETRON ODT) 4 Mg Tab.rapdis 1-2 TAB PO Q8HRS PRN for VOMITING, #16 TAB Prov: DELTA WADE DO 06/09/20 Hydrocodone/Acetaminophen (Hydrocodone-Acetamin 5-325 mg) 1 Each Tablet 1 EACH PO Q4-6HRS PRN for PAIN, #10 TAB Prov: DELTA WADE DO 06/09/20 DELTA WADE DO Jun 09, 2020 06:33
[2020-06-09] MEDS ORDERED: IOHEXOL 300 MG/ML 75 ML VIAL. IV ONE (06:45)
[2020-06-09] MEDS ORDERED: CONTRAST GIVEN. MC PRN (06:45)
[2020-06-09 06:47] LABS: BASO % 1 % (0-3); EOS # 0.1 x10^3/uL (0.0-0.7); EOS % 2 % (0-3); HEMATOCRIT 38.3 % (36.0-47.0); HEMOGLOBIN 12.2 g/dL (12.0-15.5); LYMPH # 2.3 x10^3/uL (1.0-4.8); LYMPH % 30 % (24-48); MEAN CORPUSCULAR HEMOGLOBIN 28 pg (25-35); MEAN CORPUSCULAR HGB CONC 32 g/dL (31-37); MEAN CORPUSCULAR VOLUME 88 fL (79-100); MONO # 0.8 x10^3/uL (0.0-1.1); MONO % 11 % (0-9); NEUT # 4.3 x10^3uL (1.8-7.7); NEUT % 57 % (31-73); PLATELET COUNT 361 x10^3/uL (140-400); RED BLOOD COUNT 4.34 x10^6/uL (3.50-5.40); RED CELL DISTRIBUTION WIDTH 15.5 % (11.5-14.5); WHITE BLOOD COUNT 7.6 x10^3/uL (4.0-11.0)
[2020-06-09 06:55] LABS: CALCIUM 9.1 mg/dL (8.5-10.1); CREATININE 0.7 mg/dL (0.6-1.0); GFR 100.4
[2020-06-09 07:01] LABS: ALBUMIN 3.7 g/dL (3.4-5.0); ALBUMIN/GLOBULIN RATIO 0.8 (1.0-1.7); TOTAL BILIRUBIN 0.2 mg/dL (0.2-1.0); TOTAL PROTEIN 8.2 g/dL (6.4-8.2)
[2020-06-09 07:10] LABS: U PREG PATIENT NEGATIVE (NEG)
[2020-06-09 07:22] LABS: AMORPHOUS SEDIMENT,UR PRESENT /HPF; BACTERIA,URINE 0 /HPF (0-FEW); BILIRUBIN,URINE NEG (NEG); CLARITY,URINE HAZY; COLOR,URINE YELLOW; GLUCOSE,URINE NEG (NEG); NITRITE,URINE NEG (NEG); RBC,URINE 0 /HPF (0-2); SQUAMOUS EPITHELIAL CELL,UR MANY /LPF; UROBILINOGEN,URINE 0.2 mg/dL (0.2 mg/dL)
--- NOTE | 2020-06-09 07:42 | RAD ---
CT ABDOMEN+PELVIS W History: Reason: epigastric pain, hematemesis Omni 300 75cc / Spl. Instructions: / History: Technique: After the administration of intravenous contrast, CT imaging was performed of the abdomen and pelvis. Multiplanar images are reviewed. Exposure: One or more of the following individualized dose reduction techniques were utilized for thi s examination: 1. Automated exposure control 2. Adjustment of the mA and/or kV according to patient size 3. Use of iterative reconstruction technique. Comparison: June 04, 2018 Findings: Lower chest: No consolidation or pleural effusion. Abdomen and pelvis: The liver, spleen, adrenal glands, and pancreas are unremarkable. Prior cholecyst ectomy. Prominence of the bile ducts likely due to postcholecystectomy state. Normal appearance the k idneys. No hydronephrosis. Decompressed urinary bladder. Prior appendectomy. No evidence of bowel obstruction. No pathologic lymphadenopathy. No ascites. Righ t ovarian follicle measures 1.7 cm. Bones: No pathologic osseous lesions. Impression: 1. No acute abdominal or pelvic pathology. Electronically signed by: Umang Fernandez DO (06/09/2020 7:39 AM) [facility]
[2020-06-09] MEDS ORDERED: PROCHLORPERAZINE 10 MG/2 ML VIAL. IV ONE (08:00)
[2020-06-09 08:21] VITALS: BP 104/59
[2020-06-09] MEDS ORDERED: ONDA4TAB12 PO (08:27)
[2020-06-09] MEDS ORDERED: HYDR-2759 PO (08:27)
[2020-06-09] MEDS ORDERED: HYDROcodone/APAP 5/325MG 1 TAB TABLET PO ONE (08:45)
== END 2020-06-09 09:04 | disposition home or self-care (01) ==
LOC: ER 06:10
DX: K25.4 Chronic or unspecified gastric ulcer with hemorrhage (principal); F31.9 Bipolar disorder, unspecified; F17.210 Nicotine dependence, cigarettes, uncomplicated; Z88.8 Allergy status to other drugs, medicaments and biological substances
CPT/HCPCS: 36415; 74177; 80053; 81001; 81025; 83690; 85025; 96361; 96374; 96375; 96376; 99285; C9113; J0780; J2270; J2405; J7030; Q9967

== ENCOUNTER 2020-07-01 08:47 | Emergency (ER) | payer SELFPAY ==
[~2020-07-01] VITALS: Ht 165.1 cm; Wt 66.0 kg
[~2020-07-01 08:47] MED LIST changes: +HYDR-2759 PO; +ONDA4TAB12 PO
[2020-07-01] MEDS ORDERED: KETOROLAC 15 MG/ML VIAL. IVP ONE (09:15)
[2020-07-01] MEDS ORDERED: IV NORMAL SALINE 1,000ML 1,000 ML IV ONE (09:15)
[2020-07-01] MEDS ORDERED: ONDANSETRON PF 4 MG/2 ML VIAL. IVP ONE ×2 (09:15→11:45)
--- NOTE | 2020-07-01 09:18 | PHYS DOC ---
Past History Past Medical History: Anxiety, Bipolar, Cancer, Constipation, Ovarian Cyst Past Surgical History: Appendectomy, Cholecystectomy, Other Additional Past Surgical Histo: LEFT OOPHORECTOMY, CARPAL TUNNEL SURGERY, R EYE REMOVED, D&C x2 Smoking: Cigarettes, Greater than 1 pack/day Alcohol Use: Rarely Drug Use: None General Adult EDM: Chief Complaint: FLANK PAIN HPI: HPI: Patient is a 29-year-old female coming in for bilateral flank pain, vomiting, diarrhea, fever (101 at home), and headache for [address] time she has had vomiting or diarrhea but states that she vomited coffee-ground emesis. Patient she has a history of an ulcer is taking omeprazole. Patient was diagnosed with a infection in her abdomen by her primary care provider 6 days ago has been taking Cipro and Flagyl. Patient states that pain from last week was in her left lower quadrant. Denies any blood in her stools or melena. Denies any dysuria or cough. Review of Systems: Review of Systems: All other systems within normal limits except for as noted in the HPI Allergies: Allergies: Allergies Coded Allergies Type Severity Reaction Last Updated Verified divalproex sodium Allergy Intermediate Hives 07/01/20 Yes Physical Exam: PE: Constitutional: Well developed, well nourished, mild acute distress, non-toxic appearance. [] HENT: Normocephalic, atraumatic, bilateral external ears normal, nose normal. [] Eyes:conjunctiva normal, no discharge. [] Neck: No rigidity, supple, no stridor. [] Cardiovascular: Regular rate and rhythm, brisk cap refill [] Lungs & Thorax: Non labored symmetric respirations, no tachypnea or respiratory distress [] Abdomen: Soft, nondistended, no tenderness or guarding palpation. Skin: Warm, dry, no erythema, no rash. [] Back: Unremarkable, bilateral CVA tenderness Extremities: No deformities, range of motion grossly intact, no lower extremity edema [] Neurologic: Alert and oriented X 3, no focal deficits noted. [] Psychologic: Affect normal, judgement normal, mood normal. [] Current Patient Data: Labs: Laboratory Tests Test 07/01/20 09:06 POC Urine HCG, Qualitative hcg negative (Negative) Vital Signs: Vital Signs Date Time Temp Pulse Resp B/P (MAP) Pulse Ox O2 Delivery O2 Flow Rate FiO2 07/01/20 08:50 97.9 90 18 112/70 (84) 98 EKG: EKG: [] Radiology/Procedures: Radiology/Procedures: CT abdomen/pelvis with contrast 07/01/2020 10:12 AM INDICATION: Abdominal pain COMPARISON: CT abdomen/pelvis 06/09/2020 TECHNIQUE: Multiple axial CT images of the abdomen and pelvis were obtained after the intravenous administration of 75 mL nonionic contrast. Coronal and sagittal reformats are provided. FINDINGS: Lungs are clear. Heart size within normal limits. Liver, spleen, adrenal glands and pancreas are normal in appearance. Gallbladder surgically absent. The abdominal aorta is normal in course and caliber. There are no pathologically enlarged lymph nodes in the abdomen and pelvis. There is no abdominal free fluid. There is no free intraperitoneal air. Trace pelvic free fluid is identified. Small large bowel are normal in caliber. Suspect prior appendectomy changes. No bowel obstruction or inflammation. Fluid is noted within the cecum and throughout the small bowel. Correlate with any history of diarrhea. Follicular changes are identified in the right adnexa with a crenulated cystic lesion measuring 1.7 x 1.3 cm (series 2, image 71) suggestive of a hemorrhagic cyst. Uterus is normal by CT. Urinary bladder is within normal limits given degree of distention. The kidneys enhance symmetrically. There is no suspicious renal mass. There is no hydronephrosis. There are no suspected calculi within the kidneys, ureters or urinary bladder. There may be mild wall thickening at the level of the cervix. Correlate with any signs and symptoms of cervicitis. IMPRESSION: 1. No bowel obstruction or inflammation. 2. Trace pelvic free fluid may be physiologic. Cranial to cystic lesion in the right adnexa measures 1.7 cm suggestive of a hemorrhagic cyst. 3. Mild wall thickening of the cervix could be associated with cervicitis. [] Heart Score: C/O Chest Pain: No Risk Factors: Risk Factors: DM, Current or recent (<one month) smoker, HTN, HLP, family history of CAD, obesity. Risk Scores: Score 0 - 3: 2.5% MACE over next 6 weeks - Discharge Home Score 4 - 6: 20.3% MACE over next 6 weeks - Admit for Clinical Observation Score 7 - 10: 72.7% MACE over next 6 weeks - Early Invasive Strategies Course & Med Decision Making: Course & Med Decision Making Pertinent Labs and Imaging studies reviewed. (See chart for details) Fluid-filled bowel consistent with gastroenteritis. Patient tolerating p.o. after Zofran. Discussed incidental finding of thickened cervix, patient denies any dyspareunia or vaginal discharge. Last saw her SPOT WORKER about 4 months ago. Patient states she will follow-up for possible Pap smear with her SPOT WORKER. [] Dragon Disclaimer: Dragon Disclaimer: This electronic medical record was generated, in whole or in part, using a voice recognition dictation system. Departure Departure: Impression: Primary Impression: Abdominal pain, vomiting, and diarrhea Disposition: HOME / SELF CARE / HOMELESS Condition: STABLE Referrals: GUS BUI MD (PCP) Patient Instructions: Diet for Diarrhea, Adult Scripts Hydrocodone Bit/Acetaminophen (HYDROCODONE-APAP 5-325 ) 1 Each Tablet 1 TAB PO PRN Q6HRS PRN for PAIN for 5 Days, #10 TAB 0 Refills Caution: this medication can make you drowsy. Do not drive or operate heavy machinery when using this medication. Prov: STEFANIA PARDO MD 07/01/20 Ondansetron Hcl (ZOFRAN) 4 Mg Tablet 1 TAB PO PRN Q6HRS PRN for NAUSEA for 3 Days, #6 TAB Prov: STEFANIA PARDO MD 07/01/20 STEFANIA PARDO MD July 01, 2020 09:18
[2020-07-01 09:30] LABS: BASO % 0 % (0-3); CREATININE 0.8 mg/dL (0.6-1.0); EOS % 0 % (0-3); HEMATOCRIT 37.2 % (36.0-47.0); HEMOGLOBIN 11.9 g/dL (12.0-15.5); LYMPH % 8 % (24-48); MEAN CORPUSCULAR HEMOGLOBIN 27 pg (25-35); MEAN CORPUSCULAR HGB CONC 32 g/dL (31-37); MEAN CORPUSCULAR VOLUME 85 fL (79-100); MONO # 1.6 x10^3/uL (0.0-1.1); MONO % 12 % (0-9); NEUT % 80 % (31-73); PLATELET COUNT 194 x10^3/uL (140-400); POTASSIUM 3.5 mmol/L (3.5-5.1); RED BLOOD COUNT 4.37 x10^6/uL (3.50-5.40); RED CELL DISTRIBUTION WIDTH 15.9 % (11.5-14.5); WHITE BLOOD COUNT 13.7 x10^3/uL (4.0-11.0)
[2020-07-01] MEDS ORDERED: IV NORMAL SALINE 500ML 500 ML IV ONE (09:30)
[2020-07-01 09:36] LABS: ALBUMIN 3.6 g/dL (3.4-5.0); ALBUMIN/GLOBULIN RATIO 0.8 (1.0-1.7); TOTAL BILIRUBIN 0.4 mg/dL (0.2-1.0); TOTAL PROTEIN 8.3 g/dL (6.4-8.2)
[2020-07-01 09:38] LABS: BILIRUBIN,URINE NEG (NEG); CLARITY,URINE HAZY; COLOR,URINE YELLOW; GLUCOSE,URINE NEG (NEG)
[2020-07-01 09:39] LABS: UROBILINOGEN,URINE 0.2 mg/dL (0.2 mg/dL)
[2020-07-01 09:43] LABS: BACTERIA,URINE FEW /HPF (0-FEW); WBC,URINE TNTC /HPF (0-4)
[2020-07-01 09:44] LABS: NITRITE,URINE POS (NEG); SQUAMOUS EPITHELIAL CELL,UR FEW /LPF
[2020-07-01 10:03] LABS: AMPHETAMINE/METHAMPHETAMINE NEG (NEG); BARBITURATES NEG (NEG); BENZODIAZEPINES NEG (NEG); CANNABINOIDS NEG (NEG); COCAINE NEG (NEG); METHADONE NEG (NEG); OPIATES NEG (NEG); PHENCYCLIDINE NEG (NEG)
[2020-07-01] MEDS ORDERED: IOHEXOL 300 MG/ML 75 ML VIAL. IV ONE (10:15)
--- NOTE | 2020-07-01 10:36 | RAD ---
PQRS Compliance Statement: One or more of the following individualized dose reduction techniques were utilized for this examinat ion: 1. Automated exposure control 2. Adjustment of the mA and/or kV according to patient size 3. Use of iterative reconstruction technique CT abdomen/pelvis with contrast 07/01/2020 10:12 AM INDICATION: Abdominal pain COMPARISON: CT abdomen/pelvis 06/09/2020 TECHNIQUE: Multiple axial CT images of the abdomen and pelvis were obtained after the intravenous adm inistration of 75 mL nonionic contrast. Coronal and sagittal reformats are provided. FINDINGS: Lungs are clear. Heart size within normal limits. Liver, spleen, adrenal glands and pancreas are norm al in appearance. Gallbladder surgically absent. The abdominal aorta is normal in course and caliber. There are no pathologically enlarged lymph nodes in the abdomen and pelvis. There is no abdominal fr ee fluid. There is no free intraperitoneal air. Trace pelvic free fluid is identified. Small large kaity wel are normal in caliber. Suspect prior appendectomy changes. No bowel obstruction or inflammation. Fluid is noted within the cecum and throughout the small bowel. Correlate with any history of diarrhe a. Follicular changes are identified in the right adnexa with a crenulated cystic lesion measuring 1. 7 x 1.3 cm (series 2, image 71) suggestive of a hemorrhagic cyst. Uterus is normal by CT. Urinary malachi dder is within normal limits given degree of distention. The kidneys enhance symmetrically. There is no suspicious renal mass. There is no hydronephrosis. There are no suspected calculi within the kidne ys, ureters or urinary bladder. There may be mild wall thickening at the level of the cervix. Correla te with any signs and symptoms of cervicitis. IMPRESSION: 1. No bowel obstruction or inflammation. 2. Trace pelvic free fluid may be physiologic. Cranial to cystic lesion in the right adnexa measures 1.7 cm suggestive of a hemorrhagic cyst. 3. Mild wall thickening of the cervix could be associated with cervicitis. Electronically signed by: Mónica Lynn MD (07/01/2020 10:34 AM) [id number]
[2020-07-01] MEDS ORDERED: DICYCLOMINE 20 MG/2 ML VIAL. IM ONE (10:45)
[2020-07-01] MEDS ORDERED: ONDA4TAB7 PO (11:51)
[2020-07-01] MEDS ORDERED: HYDR-2155 PO (11:51)
[2020-07-01 11:58] VITALS: BP 103/54
== END 2020-07-01 11:58 | disposition home or self-care (01) ==
LOC: ER 08:47
DX: K52.9 Noninfective gastroenteritis and colitis, unspecified (principal); R10.9 Unspecified abdominal pain; R11.2 Nausea with vomiting, unspecified; F17.210 Nicotine dependence, cigarettes, uncomplicated; Z90.49 Acquired absence of other specified parts of digestive tract
CPT/HCPCS: 36415; 74177; 80053; 80307; 81001; 81025; 83690; 85025; 87086; 96361; 96372; 96374; 96375; 96376; 99285; J0500; J1885; J2405; J3010; J7030; Q9967

== ENCOUNTER 2020-09-05 19:35 | Emergency (ER) | payer SELFPAY ==
[~2020-09-05] VITALS: Ht 165.1 cm; Wt 67.2 kg
[~2020-09-05 19:35] MED LIST changes: +HYDR-2155 PO; +ONDA4TAB7 PO
[2020-09-05 20:18] LABS: BASO # 0.1 x10^3/uL (0.0-0.2); BASO % 1 % (0-3); EOS # 0.1 x10^3/uL (0.0-0.7); EOS % 1 % (0-3); HEMATOCRIT 39.4 % (36.0-47.0); HEMOGLOBIN 12.6 g/dL (12.0-15.5); LYMPH # 2.7 x10^3/uL (1.0-4.8); LYMPH % 29 % (24-48); MEAN CORPUSCULAR HEMOGLOBIN 27 pg (25-35); MEAN CORPUSCULAR HGB CONC 32 g/dL (31-37); MEAN CORPUSCULAR VOLUME 85 fL (79-100); MONO # 0.9 x10^3/uL (0.0-1.1); MONO % 9 % (0-9); NEUT # 5.6 x10^3uL (1.8-7.7); NEUT % 60 % (31-73); PLATELET COUNT 338 x10^3/uL (140-400); RED BLOOD COUNT 4.66 x10^6/uL (3.50-5.40); RED CELL DISTRIBUTION WIDTH 20.2 % (11.5-14.5); WHITE BLOOD COUNT 9.4 x10^3/uL (4.0-11.0)
[2020-09-05 20:25] LABS: BACTERIA,URINE MOD /HPF (0-FEW); BILIRUBIN,URINE NEG (NEG); CALCIUM 9.3 mg/dL (8.5-10.1); CLARITY,URINE HAZY; COLOR,URINE YELLOW; CREATININE 0.7 mg/dL (0.6-1.0); GFR 100.4; GLUCOSE,URINE NEG (NEG); NITRITE,URINE NEG (NEG); RBC,URINE OCC /HPF (0-2); UROBILINOGEN,URINE 0.2 mg/dL (0.2 mg/dL)
[2020-09-05 20:26] LABS: SQUAMOUS EPITHELIAL CELL,UR MOD /LPF
[2020-09-05] MEDS ORDERED: MORPHINE SULFATE 4 MG/ML DISP.SYRIN. IV ONE ×2 (20:30→21:45)
[2020-09-05] MEDS ORDERED: ONDANSETRON PF 4 MG/2 ML VIAL. IVP ONE ×2 (20:30→21:45)
--- NOTE | 2020-09-05 20:30 | PHYS DOC ---
Past History Past Medical History: Anxiety, Bipolar, Cancer, Constipation, Ovarian Cyst (ELI DUVAL APRN) Past Surgical History: Appendectomy, Cholecystectomy, Other Additional Past Surgical Histo: LEFT OOPHORECTOMY, CARPAL TUNNEL SURGERY, R EYE REMOVED, D&C x2 (ELI DUVAL APRN) Smoking: Cigarettes, Greater than 1 pack/day Alcohol Use: Rarely Drug Use: None (ELI DUVAL APRN) General Adult EDM: Chief Complaint: ABDOMINAL PAIN HPI: HPI: Patient is a 29-year-old female who presents with right lower quadrant abdominal pain that radiates into her right lower back. Patient states that symptoms started about 5 days ago. Patient also reports nausea and vomiting. Patient states that she took Zofran at home along with Tylenol and had some relief. Patient states that she was running 102 fever at home. Patient is afebrile in the emergency room. Patient has a history of anxiety, depression (ELI DUVAL APRN) Review of Systems: Review of Systems: Constitutional: Ports fever and chills Eyes: Denies change in visual acuity HENT: Denies nasal congestion or sore throat Respiratory: Denies cough or shortness of breath Cardiovascular: Denies chest pain or edema GI: Reports right lower quadrant abdominal pain, nausea, vomiting : Denies dysuria Musculoskeletal: Reports right lower back pain or joint pain Integument: Denies rash Neurologic: Denies headache, focal weakness or sensory changes Endocrine: Denies polyuria or polydipsia Lymphatic: Denies swollen glands Psychiatric: Reports depression or anxiety (ELI DUVAL APRN) Allergies: Allergies: Allergies Coded Allergies Type Severity Reaction Last Updated Verified divalproex sodium Allergy Intermediate Hives 09/05/20 Yes (ELI DUVAL APRN) Physical Exam: PE: Constitutional: Well developed, well nourished, no acute distress, non-toxic appearance. [] HENT: Normocephalic, atraumatic, bilateral external ears normal, oropharynx moist, no oral exudates, nose normal. [] Eyes: PERRLA, EOMI, conjunctiva normal, no discharge. [] Neck: Normal range of motion, no tenderness, supple, no stridor. [] Cardiovascular:Heart rate regular rhythm, no murmur [] Lungs & Thorax: Bilateral breath sounds clear to auscultation [] Abdomen: Bowel sounds normal, soft, no tenderness, no masses, no pulsatile masses. [] Skin: Warm, dry, no erythema, no rash. [] Back: Right-sided, lower back tenderness, no CVA tenderness. [] Extremities: No tenderness, no cyanosis, no clubbing, ROM intact, no edema. [] Neurologic: Alert and oriented X 3, normal motor function, normal sensory function, no focal deficits noted. [] Psychologic: Affect normal, judgement normal, mood normal. [] (ELI DUVAL APRN) Current Patient Data: Labs: Laboratory Tests Test 09/05/20 19:58 09/05/20 20:09 White Blood Count 9.4 x10^3/uL (4.0-11.0) Red Blood Count 4.66 x10^6/uL (3.50-5.40) Hemoglobin 12.6 g/dL (12.0-15.5) Hematocrit 39.4 % (36.0-47.0) Mean Corpuscular Volume 85 fL (79-100) Mean Corpuscular Hemoglobin 27 pg (25-35) Mean Corpuscular Hemoglobin Concent 32 g/dL (31-37) Red Cell Distribution Width 20.2 % (11.5-14.5) H Platelet Count 338 x10^3/uL (140-400) Neutrophils (%) (Auto) 60 % (31-73) Lymphocytes (%) (Auto) 29 % (24-48) Monocytes (%) (Auto) 9 % (0-9) Eosinophils (%) (Auto) 1 % (0-3) Basophils (%) (Auto) 1 % (0-3) Neutrophils # (Auto) 5.6 x10^3uL (1.8-7.7) Lymphocytes # (Auto) 2.7 x10^3/uL (1.0-4.8) Monocytes # (Auto) 0.9 x10^3/uL (0.0-1.1) Eosinophils # (Auto) 0.1 x10^3/uL (0.0-0.7) Basophils # (Auto) 0.1 x10^3/uL (0.0-0.2) POC Urine HCG, Qualitative hcg negative (Negative) (ELI DUVAL APRN) EKG: EKG: [] (ELI DUVAL APRN) EKG: My interpretation EKG shows a sinus tachycardia 108 bpm. Does have some bimodal P waves and left leads. No findings of acute STEMI with contralateral changes. But would be considered abnormal EKG (KAVON LEI MD) Radiology/Procedures: Radiology/Procedures: []EXAMINATION: CT abdomen and pelvis without IV contrast. INDICATION:29 years, Female, right lower quadrant pain. TECHNIQUE: Axial CT images of the abdomen and pelvis were obtained. Coronal and sagittal reformatted performed. COMPARISON: 07/01/2020. Exposure: One or more of the following individualized dose reduction techniques were utilized for this examination: 1. Automated exposure control 2. Adjustment of the mA and/or kV according to patient size 3. Use of iterative reconstruction technique. FINDINGS: LOWER CHEST: Unremarkable ABDOMEN/PELVIS: Within the limitation of noncontrast exam, Liver, gallbladder, spleen, pancreas, adrenals and kidneys are unremarkable. Cholecystectomy. No bowel obstruction or wall thickening. Appendectomy. Normal caliber abdominal aorta. No pneumoperitoneum or ascites. No abdominopelvic lymphadenopathy by size criteria. Underdistended urinary bladder which limits evaluation. There is 3.3 x 2.1 cm complex right adnexal cyst with eccentric hyperdense focus. MUSCULOSKELETAL: No acute osseous process or suspicious lesion. IMPRESSION: Complex 3.3 cm right adnexal cyst with eccentric hyperdense focus, probably hemorrhagic cyst which can be the source of pain. Recommend ultrasound pelvis for further evaluation. Electronically signed by: Aubree Russell MD (09/05/2020 8:53 PM) [facility] (ELI DUVAL APRN) Heart Score: C/O Chest Pain: No Risk Factors: Risk Factors: DM, Current or recent (<one month) smoker, HTN, HLP, family history of CAD, obesity. Risk Scores: Score 0 - 3: 2.5% MACE over next 6 weeks - Discharge Home Score 4 - 6: 20.3% MACE over next 6 weeks - Admit for Clinical Observation Score 7 - 10: 72.7% MACE over next 6 weeks - Early Invasive Strategies (ELI DUVAL APRN) Course & Med Decision Making: Course & Med Decision Making Pertinent Labs and Imaging studies reviewed. (See chart for details) [] 29-year-old female presents with right lower quadrant abdominal pain that radiates into her right lower back. Patient also reports nausea, vomiting and fever. Patient is afebrile in the emergency room. Patient given 4 mg of morphine, 4 mg of Zofran to treat nausea and pain. Patient has had appendix, gallbladder, and left oophorectomy removal. CT of abdomen shows 3.3 cm right adnexal cyst. Discussed results with patient. Advised patient to call her PCP in the morning and make a follow-up appointment. I will be sending patient home with 5/325 hydrocodone until she can follow-up with primary. Patient can also take ibuprofen at home for discomfort. I am also sending patient home with a prescription for Zofran for nausea. Patient given strict return precautions. Patient states that she understands. Patient is hemodynamically stable. (ELI DUVAL APRN) Dragon Disclaimer: Dragon Disclaimer: This electronic medical record was generated, in whole or in part, using a voice recognition dictation system. (ELI DUVAL APRN) Departure Departure: Impression: Primary Impression: Ovarian cyst Qualified Codes: N83.201 - Unspecified ovarian cyst, right side Additional Impression: Nausea & vomiting Qualified Codes: R11.2 - Nausea with vomiting, unspecified Disposition: 01 HOME / SELF CARE / HOMELESS Condition: STABLE Referrals: GUS BUI MD (PCP) Patient Instructions: Abdominal Pain Additional Instructions: You are seen in the emergency room for right lower quadrant pain. CT of your abdomen shows an ovarian cyst. Please call your PCP tomorrow to make a follow- up appointment for further management. Sending you home with medication for pain and for nausea. Return to the emergency room if you have an increase in pain, worsening symptoms or concerns EMERGENCY DEPARTMENT GENERAL DISCHARGE INSTRUCTIONS Thank you for coming to [facility] (ED) today and trusting us with you care. We trust that you had a positivie experience in our Emergency Department. If you wish to speak to the department management, you may call the director at [phone]. YOUR FOLLOW UP INSTRUCTIONS ARE FOLLOWS: 1. Do you have a private Doctor? If you do not have a private doctor, please ask for a resource list of physicians or clinics that may be able to assist you with follow up care. 2. The Emergency Physician has interpreted your x-rays. The X-Ray specialist will also review them. If there is a change in the findings, you will be notified in 48 hours when at all possible. 3. A lab test or culture has been done, your results will be reviewed and you will be notified if you need a change in treatment. ADDITIONAL INSTRUCTIONS AND INFORMATION: 1. Your care today has been supervised by a physician who is specially trained in emergency care. Many problems require more than one evaluation for a complete diagnosis and treatment. We recommend that you schedule your follow up appointment as recommended to ensure complete treatment of you illness or injury. If you are unable to obtain follow up care and continue to have a problem, or if your condition worsens, we recommend that you return to the ED. 2. We are not able to safely determine your condition over the phone nor are we able to give sound medical advice over the phone. For these safety reasons, if you call for medical advice we will ask you to come to the ED for further evaluation. 3. If you have any questions regarding these discharge instructions please call the ED at [phone]. SAFETY INFORMATION: In the interest of safety, wellness, and injury prevention; we encourage you to wear your sealbelt, if you smoke; quite smoking, and we encourage family to use a protective helmet for bicycling and other sporting events that present an increased risk for head injury. IF YOUR SYMPTOMS WORSEN OR NEW SYMPTOMS DEVELOP, OR YOU HAVE CONCERNS ABOUT YOUR CONDITION; OR IF YOUR CONDITION WORSENS WHILE YOU ARE WAITING FOR YOUR FOLLOW UP APPOINTMENT; EITHER CONTACT YOUR PRIMARY CARE DOCTOR, THE PHYSICIAN WHOSE NAME AND NUMBER YOU WERE GIVEN, OR RETURN TO THE ED IMMEDIATELY. Scripts Ondansetron Hcl (ZOFRAN) 4 Mg Tablet 4 MG PO TID PRN PRN for NAUSEA for 7 Days, #9 TAB Prov: ELI DUVAL APRN 09/05/20 Hydrocodone Bit/Acetaminophen (HYDROCODONE-APAP 5-325 ) 1 Each Tablet 1 TAB PO PRN Q6HRS PRN for PAIN for 3 Days, #12 TAB 0 Refills Prov: ELI DUVAL APRN 09/05/20 ELI DUVAL APRN Sep 05, 2020 20:30 KAVON LEI MD Sep 06, 2020 07:42
[2020-09-05 20:49] LABS: ANISOCYTOSIS SLIGHT; PLT ESTIMATE INCREASED (ADEQUATE); POLYCHROMASIA SLIGHT; SPHEROCYTES OCC
--- NOTE | 2020-09-05 20:56 | RAD ---
EXAMINATION: CT abdomen and pelvis without IV contrast. INDICATION:29 years, Female, right lower quadrant pain. TECHNIQUE: Axial CT images of the abdomen and pelvis were obtained. Coronal and sagittal reformatted performed. COMPARISON: 07/01/2020. Exposure: One or more of the following individualized dose reduction techniques were utilized for thi s examination: 1. Automated exposure control 2. Adjustment of the mA and/or kV according to patient size 3. Use of iterative reconstruction technique. FINDINGS: LOWER CHEST: Unremarkable ABDOMEN/PELVIS: Within the limitation of noncontrast exam, Liver, gallbladder, spleen, pancreas, adrenals and kidneys are unremarkable. Cholecystectomy. No preet l obstruction or wall thickening. Appendectomy. Normal caliber abdominal aorta. No pneumoperitoneum o r ascites. No abdominopelvic lymphadenopathy by size criteria. Underdistended urinary bladder which l imits evaluation. There is 3.3 x 2.1 cm complex right adnexal cyst with eccentric hyperdense focus. MUSCULOSKELETAL: No acute osseous process or suspicious lesion. IMPRESSION: Complex 3.3 cm right adnexal cyst with eccentric hyperdense focus, probably hemorrhagic cyst which ca n be the source of pain. Recommend ultrasound pelvis for further evaluation. Electronically signed by: Aubree Russell MD (09/05/2020 8:53 PM) [facility]
[2020-09-05 21:20] VITALS: BP 120/72
[2020-09-05] MEDS ORDERED: HYDR-2155 PO (21:39)
[2020-09-05] MEDS ORDERED: ONDA4TAB7 PO (21:39)
--- NOTE | 2020-09-06 03:01 | EKG ---
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
== END 2020-09-05 22:05 | disposition home or self-care (01) ==
LOC: ER 19:35
DX: N83.201 Unspecified ovarian cyst, right side (principal); R11.2 Nausea with vomiting, unspecified; M54.5 Low back pain; F41.9 Anxiety disorder, unspecified; F31.9 Bipolar disorder, unspecified; F17.210 Nicotine dependence, cigarettes, uncomplicated; Z88.8 Allergy status to other drugs, medicaments and biological substances
CPT/HCPCS: 36415; 74176; 80048; 81001; 81025; 84484; 85025; 87086; 93005; 96374; 96375; 96376; 99285; J2270; J2405

== ENCOUNTER 2020-12-30 20:59 | Emergency (ER) | payer SELFPAY ==
[~2020-12-30] VITALS: Ht 165.1 cm; Wt 67.2 kg
--- NOTE | 2020-12-30 21:04 | PHYS DOC ---
Past History Past Medical History: Anxiety, Bipolar, Cancer, Constipation, Ovarian Cyst Additional Past Medical Histor: cysts, ulcer Past Surgical History: Appendectomy, Cholecystectomy, Other Additional Past Surgical Histo: LEFT OOPHORECTOMY, CARPAL TUNNEL SURGERY, R EYE REMOVED, D&C x2 Smoking: Cigarettes, Greater than 1 pack/day Alcohol Use: Occasionally Drug Use: None Adult General HPI HPI Patient is a 30-year-old female presents with a chief complaint of cough, fevers at home to 101, shortness of breath and wheeze that she has asthma and had a c oughing spell earlier and had some streaks of blood in her spit. States she went to her primary care physician earlier today for the same symptoms, and was swabbed for Covid and given cough medicine and sent home. States it has gotten a little worse since then. Denies any recent traumas, travels, known ill contacts, chest pain, abdominal pain, nausea, vomiting, dysuria, hematuria, diarrhea or blood in stool. States has been otherwise eating and drinking normally. Review of Systems Review of Systems Review of systems otherwise unremarkable except noted in HPI Allergies Allergies Allergies Coded Allergies Type Severity Reaction Last Updated Verified divalproex sodium Allergy Intermediate Hives 09/05/20 Yes tramadol Allergy Unknown urticaria 09/05/20 Yes Physical Exam Physical Exam Constitutional: Well developed, well nourished, no acute distress, appears that she does not feel well [] HENT: Normocephalic, atraumatic, bilateral external ears normal, oropharynx moist, no oral exudates, nose normal. [] Eyes: conjunctiva normal, no discharge. [] Neck: Normal range of motion, no tenderness, supple, no stridor. [] Cardiovascular: Sinus tachycardia Lungs & Thorax: Bilateral, global rhonchi and end expiratory wheezing with some nasal congestion Abdomen: soft, no tenderness, no masses, no pulsatile masses. [] Skin: Warm, dry, no erythema, no rash. [] Back: No tenderness, no CVA tenderness. [] Extremities: No tenderness, no cyanosis, no clubbing, ROM intact, no edema. [] Neurologic: Alert and oriented X 3, no focal deficits noted. [] Psychologic: Affect normal, judgement normal, mood normal. [] EKG EKG [] Radiology/Procedures Radiology/Procedures [] Exam: CT of chest with contrast INDICATION: Shortness of breath, fever, Covid TECHNIQUE: Sequential axial images through the chest obtained following the administration of 100 mL of Omni 350 IV contrast. Sagittal and coronal reformatted images were reconstructed from the axial data and reviewed. 3-D reformatted images were reconstructed from the axial data and reviewed. Exposure: One or more of the following in the visualized dose reduction techniques were utilized for this examination: 1. Automated exposure control 2. Adjustment of the MA and/or KV according to patient size 3. Use of iterative of reconstructive technique Comparisons: None FINDINGS: Visualized portions of the thyroid are unremarkable. No enlarged mediastinal lymph nodes are identified. Heart size is normal. No pericardial effusion thoracic aorta has normal course and caliber. Pulmonary artery is not enlarged. No pulmonary embolus identified within the main, lobar or segmental Airways are patent. Mild bronchial wall thickening is noted. No consolidation or pneumothorax. No suspicious lung nodules are identified. No pleural effusion or thickening. Visualized upper abdomen is unremarkable. No suspicious osseous lesions or acute fractures are identified. IMPRESSION: No pulmonary embolus identified within the main, lobar or segmental pulmonary arteries. Electronically signed by: Bell Sanchez MD (12/30/2020 10:27 PM) [facility] Heart Score C/O Chest Pain: Yes HEART Score for Chest Pain: HEART Score for Chest Pain Response (Comments) Value History Slighlty/Non-Suspicious 0 Age < 45 0 Risk Factors 1 or 2 Risk Factors 1 Total 1 Risk Factors: Risk Factors: DM, Current or recent (<one month) smoker, HTN, HLP, family hist ory of CAD, obesity. Risk Scores: Risk Factors: DM, Current or recent (<one month) smoker, HTN, HLP, family history of CAD, obesity. Course & Med Decision Making Course & Med Decision Making Patient is a 30-year-old female who presents with a chief complaint of Covid/flu/cold symptoms Vital signs notable for sinus tachycardia, and tachypnea . Physical exam noted above. Patient placed on the monitor with IV access established and IV fluid begun. Given DuoNeb, dexamethasone and ibuprofen. Laboratory analysis notable for mild hypokalemia. Potassium replaced. CT of the chest not concerning. On reassessment patient feeling much better, breathing better and vital signs improved. Patient states she was ready to be discharged home. Jannet all findings with patient. Advised to take medications as primary care physician provided yesterday. Gave return precautions to the ED. Patient grateful, verbalized understanding and agree with plan of discharge. Dragon Disclaimer Dragon Disclaimer This electronic medical record was generated, in whole or in part, using a voice recognition dictation system. Departure Departure: Impression: Primary Impression: Viral syndrome Additional Impression: Asthma exacerbation Disposition: HOME / SELF CARE / HOMELESS Condition: GOOD Referrals: GUS BUI MD (PCP) Patient Instructions: Asthma Attacks, Prevention, Asthma, Adult, Viral Syndrome Additional Instructions: Thank you for coming into the emergency department tonight and allowing us to take care of you. Please read the attached information carefully to go back over some of the things we discussed. Please be sure to use your albuterol at home as we discussed as needed. You can continue your medications as given to you by your primary care physician yesterday. Please call them in the morning to update on your ED visit and set up a follow-up when you can. Please be sure to follow the Covid quarantine instructions as given until you're test results. Please come back with new or concerning symptoms as we discussed. You have been tested for COVID-19 by your primary care physician. It is an infection caused by a new type of coronavirus. COVID-19 will cause cold-like or mild flu symptoms in most. It can cause more severe symptoms like problems breathing in some. There is no treatment for COVID-19. The body will clear the infection over time. Self-care will help to ease discomfort. Steps to Take: Self-Care Rest as needed. Healthy habits may help you feel better. Steps include: Choose healthy foods including fruits and vegetables. Drink water throughout the day. Get plenty of sleep each night. If you smoke, try to quit. It may ease breathing. Avoid alcohol. Keep Others Healthy The virus can spread to others. Droplets are released every time you sneeze or cough. The droplets can get into the mouth, nose, or eyes of people near you and lead to infection. To lower the chances of spreading COVID-19 to others: Stay at home until your doctor has said it is safe to leave. If you tested p ositive this will mean staying isolated until both of the following are true: At least 7 days have passed since the start of illness. You are free of fever for at least 72 hours without the use of medicine. During this time: - Avoid public areas, events, or transportation. Do not return to work or school until your doctor has said it is safe to do so. - Call ahead if you need to go to a medical center. Let them know you may have COVID-19. It will help them guide you where to go. They may also ask you to wear a facemask when you come to the office. - If you call for emergency medical services, let them know you may have COVID- 19. While at home: - Try to avoid close contact with others. Stay about 6 feet away. - If possible, spend most of your time in a separate room from others. - Use a face mask if you will be in close contact with others such as sharing a room or vehicle. - Have someone wipe down common surfaces in the home. Use household compliance coordinator every day on areas like doorknobs, counters, or sinks. - Cough or sneeze into a tissue. Throw the tissue away right after use. If a tissue is not available, cough or sneeze into your elbow. - Wash your hands often. Wash them after sneezing or coughing. Use soap and water and wash for at least 20 seconds. Alcohol based hand grain cleaner and transfer operator can be used if soap and water is not available. - Do not prepare food for others. Avoid sharing personal items like forks, spoons, or toothbrushes. - Avoid close contact with pets while you are sick. There is no evidence of the virus passing to pets. This is a safety step until more is known about this virus. Isolation can be frustrating. Social interaction can help. Keep in touch with friends and family through phone and tech options. You can still interact with others in your home, just keep a safe distance of about 6 feet. Follow-up: Your doctors office will check in with you to see if there are any changes in your health. You may be asked to keep track of symptoms to share with them. They will also let you know when you are clear to be in public again. Problems to Look Out For: Contact your doctor if your recovery is not going as you expect. Get emergency care if you have problems such as: - Trouble breathing - Nonstop chest pain or pressure - Changes in awareness, confusion, or problems waking - Lips or face have bluish color - Worsening of symptoms If you think you have an emergency, call for emergency medical services right away. As taken from [facility] [place] [facility] Problem Qualifiers HERMELINDO BAKER MD Dec 30, 2020 21:04
[2020-12-30] MEDS ORDERED: IV RINGERS SOLUTION,LACTATED 1,000 ML IV ONE (21:15)
[2020-12-30] MEDS ORDERED: DEXAMETHASONE 4 MG TABLET PO ONE (21:15)
[2020-12-30] MEDS ORDERED: IPRATRPIUM/ALBUTEROL 0.5/2.5MG 3 ML NEBU. NEB ONE (21:15)
[2020-12-30] MEDS ORDERED: IOHEXOL 350 MG/ML 100 ML VIAL. IV ONE (21:30)
[2020-12-30 21:45] LABS: BASO # 0.1 x10^3/uL (0.0-0.2); BASO % 1 % (0-3); EOS # 0.1 x10^3/uL (0.0-0.7); EOS % 2 % (0-3); HEMOGLOBIN 12.2 g/dL (12.0-15.5); LYMPH # 3.5 x10^3/uL (1.0-4.8); LYMPH % 45 % (24-48); MEAN CORPUSCULAR HEMOGLOBIN 28 pg (25-35); MEAN CORPUSCULAR HGB CONC 33 g/dL (31-37); MEAN CORPUSCULAR VOLUME 85 fL (79-100); MONO # 0.6 x10^3/uL (0.0-1.1); MONO % 7 % (0-9); NEUT # 3.5 x10^3uL (1.8-7.7); NEUT % 45 % (31-73); PLATELET COUNT 247 x10^3/uL (140-400); RED BLOOD COUNT 4.38 x10^6/uL (3.50-5.40); WHITE BLOOD COUNT 7.7 x10^3/uL (4.0-11.0)
[2020-12-30 21:55] LABS: CALCIUM 8.6 mg/dL (8.5-10.1); CREATININE 0.8 mg/dL (0.6-1.0); GFR 85.4; POTASSIUM 3.1 mmol/L (3.5-5.1)
[2020-12-30 22:01] LABS: ALBUMIN 3.5 g/dL (3.4-5.0); ALBUMIN/GLOBULIN RATIO 0.8 (1.0-1.7); TOTAL BILIRUBIN 0.1 mg/dL (0.2-1.0); TOTAL PROTEIN 7.9 g/dL (6.4-8.2)
[2020-12-30] MEDS ORDERED: POTASSIUM CHLORIDE 20 MEQ TABLET.ER. PO ONE (22:15)
--- NOTE | 2020-12-30 22:29 | RAD ---
Exam: CT of chest with contrast INDICATION: Shortness of breath, fever, Covid TECHNIQUE: Sequential axial images through the chest obtained following the administration of 100 mL of Omni 350 IV contrast. Sagittal and coronal reformatted images were reconstructed from the axial da ta and reviewed. 3-D reformatted images were reconstructed from the axial data and reviewed. Exposure: One or more of the following in the visualized dose reduction techniques were utilized for this examination: 1. Automated exposure control 2. Adjustment of the MA and/or KV according to patient size 3. Use of iterative of reconstructive technique Comparisons: None FINDINGS: Visualized portions of the thyroid are unremarkable. No enlarged mediastinal lymph nodes are identifi ed. Heart size is normal. No pericardial effusion thoracic aorta has normal course and caliber. Pulmonary artery is not enlarged. No pulmonary embolus identified within the main, lobar or segmental Airways are patent. Mild bronchial wall thickening is noted. No consolidation or pneumothorax. No melissa picious lung nodules are identified. No pleural effusion or thickening. Visualized upper abdomen is unremarkable. No suspicious osseous lesions or acute fractures are identified. IMPRESSION: No pulmonary embolus identified within the main, lobar or segmental pulmonary arteries. Electronically signed by: Bell Sanchez MD (12/30/2020 10:27 PM) [facility]
[2020-12-30] MEDS ORDERED: ACETAMINOPHEN 500 MG TABLET PO ONE (22:30)
[2020-12-30 22:58] VITALS: BP 120/68
--- NOTE | 2020-12-31 03:58 | EKG ---
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
== END 2020-12-30 22:58 | disposition home or self-care (01) ==
LOC: ER 20:59
DX: J45.901 Unspecified asthma with (acute) exacerbation (principal); B34.9 Viral infection, unspecified; F41.9 Anxiety disorder, unspecified; F31.9 Bipolar disorder, unspecified; F17.210 Nicotine dependence, cigarettes, uncomplicated; Z88.8 Allergy status to other drugs, medicaments and biological substances; Z88.6 Allergy status to analgesic agent
CPT/HCPCS: 36415; 71275; 80053; 81025; 84484; 85025; 93005; 94640; 96360; 99285; J7120; J8540; Q9967

== ENCOUNTER 2021-01-04 13:58 | Emergency (ER) | payer SELFPAY ==
[~2021-01-04] VITALS: Ht 165.1 cm; Wt 67.2 kg
[2021-01-04 13:58] VITALS: BP 122/74
--- NOTE | 2021-01-04 14:19 | PHYS DOC ---
Past History Past Medical History: Anxiety, Asthma, Bipolar, Cancer, Constipation, Ovarian Cyst Additional Past Medical Histor: cysts, ulcer (CHONGHALEY Berny FLORAL DECORATOR) Past Surgical History: Appendectomy, Cholecystectomy, Other Additional Past Surgical Histo: LEFT OOPHORECTOMY, CARPAL TUNNEL SURGERY, R EYE REMOVED, D&C x2 (CHONGHALEY Berny FLORAL DECORATOR) Smoking: Cigarettes, Greater than 1 pack/day Alcohol Use: Occasionally Drug Use: None (CHONGHALEY FLORAL DECORATOR) Adult General Chief Complaint Chief Complaint: CHEST PAIN HPI HPI Patient is a female with history of asthma, anxiety, bipolar, who presents the ED today complaining of cough, 8/10 sharp generalized chest pain only when coughing and shortness of breath, symptoms 1-1/2 weeks. Patient states she has been trying to use her albuterol nebulizer treatments with minimal relief. Denies any fevers. Denies any nasal congestion. Reports receiving Moderna Covid vaccine in September 2020. Denies any chance she is , denies any use of hormones, denies any recent hospitalizations, denies any personal family history of PEs or DVTs. Patient was seen in the ED 5 days ago for the same complaint (JUANAMenaHALEY Berny FLORAL DECORATOR) Review of Systems Review of Systems Constitutional: Denies fever or chills [] Eyes: Denies change in visual acuity, redness, or eye pain [] HENT: Denies nasal congestion or sore throat [] Respiratory: Reports cough and shortness of breath [] Cardiovascular: Reports chest pain GI: Denies abdominal pain, nausea, vomiting, bloody stools or diarrhea [] : Denies dysuria or hematuria [] Musculoskeletal: Denies back pain or joint pain [] Integument: Denies rash or skin lesions [] Neurologic: Denies headache, focal weakness or sensory changes [] All other systems were reviewed and found to be within normal limits, except as documented in this note. (JUANAHALEY San FLORAL DECORATOR) Allergies Allergies Allergies Coded Allergies Type Severity Reaction Last Updated Verified divalproex sodium Allergy Intermediate Hives 09/05/20 Yes tramadol Allergy Unknown urticaria 09/05/20 Yes (HALEY SCHWARZ FLORAL DECORATOR) Physical Exam Physical Exam Constitutional: Well developed, well nourished, no acute distress, non-toxic appearance. [] HENT: Normocephalic, atraumatic, bilateral external ears normal, oropharynx moist, no oral exudates, nose normal. [] Eyes: PERRLA, EOMI, conjunctiva normal, no discharge. [] Neck: Normal range of motion, no tenderness, supple, no stridor. [] Cardiovascular:Heart rate regular rhythm, no murmur [] Lungs & Thorax: Bilateral breath sounds clear to auscultation [] Abdomen: Bowel sounds normal, soft, no tenderness, no masses, no pulsatile masses. [] Skin: Warm, dry, no erythema, no rash. [] Back: No tenderness, no CVA tenderness. [] Extremities: No tenderness, no cyanosis, no clubbing, ROM intact, no edema. [] Neurologic: Alert and oriented X 3, normal motor function, normal sensory function, no focal deficits noted. [] Psychologic: Affect normal, judgement normal, mood normal. [] (HALEY SCHWARZ APRN) EKG EKG [] (HALEY SCHWARZ APRN) Radiology/Procedures Radiology/Procedures []PROCEDURE: CHEST AP ONLY EXAM: CHEST 1 VIEW History: Cough COMPARISON: 06/04/2018 TECHNIQUE: Single portable radiograph of the chest FINDINGS: The cardiac silhouette is unremarkable. The lungs are clear bilaterally. The costophrenic sulci are clear and well demarcated. IMPRESSION: No radiographic evidence of an acute cardiopulmonary process. Electronically signed by: Vinh Mac MD (01/04/2021 2:34 PM) [id number] DICTATED AND SIGNED BY: VINH MAC MD DATE: 01/04/21 1433 CC: GUS BUI MD; HALEY SCHWARZ APRN ~MTH0 0 (HALEY SCHWARZ APRN) Heart Score C/O Chest Pain: N/A Risk Factors: Risk Factors: DM, Current or recent (<one month) smoker, HTN, HLP, family history of CAD, obesity. Risk Scores: Risk Factors: DM, Current or recent (<one month) smoker, HTN, HLP, family history of CAD, obesity. (HALEY SCHWARZ APRN) Course & Med Decision Making Course & Med Decision Making Pertinent Labs and Imaging studies reviewed. (See chart for details) Is a 30-year-old female patient presented to the ED today complaining of cough, shortness of breath and chest pain on coughing, symptoms for 1-1/2 weeks. Patient is afebrile. Heart rate was in the 130s on arrival to the ED. Patient states her heart rate goes up when she is coughing. She is seen in the ED 5 days ago for the same complaint and had a bleeding work-up including CTA chest and labs which were negative for any acute findings. Her heart rate is trending down currently at 111. Chest x-ray is negative for any acute findings. She is a smoker she was advised to consider smoking cessation. She was discharged to home and instructed to follow-up with her own PCP on Wednesday (HALEY SCHWARZ APRN) Course & Med Decision Making I was the Attending physician on the above date of service of this patient. This patient was evaluated, examined, treated, and dispositioned from the emergency department by the mid-level practitioner. Although I was working at the time , no assistance was requested. Electronically signed, Anne Marie Spicer DO (ANNE MARIE SPICER DO) Marciano Disclaimer Marciano Disclaimer This electronic medical record was generated, in whole or in part, using a voice recognition dictation system. (HALEY SCHWARZ APRN) Departure Departure: Impression: Primary Impression: Acute bronchitis Additional Impressions: Asthma exacerbation Tachycardia Disposition: 01 HOME / SELF CARE / HOMELESS Condition: STABLE Referrals: GUS BUI MD (PCP) Follow-up on Wednesday Patient Instructions: Acute Bronchitis, Asthma, Adult Additional Instructions: Please follow-up with your primary care doctor on Wednesday. Take the prescribed medications as ordered Scripts Albuterol Sulfate (Proair Respiclick) 90 Mcg Aer.pow.ba 2 PUFF IH PRN Q4-6HRS PRN for shortness of breath, #1 INHALER 0 Refills Prov: HALEY SCHWARZ APRN 01/04/21 Prednisone (PREDNISONE) 50 Mg Tablet 1 TAB PO DAILY, #5 TAB Prov: HALEY SCHWARZ APRN 01/04/21 Problem Qualifiers Primary Impression: Acute bronchitis Bronchitis organism: unspecified organism Qualified Codes: J20.9 - Acute bronchitis, unspecified Additional Impressions: Asthma exacerbation Asthma severity: mild Asthma persistence: intermittent Qualified Codes: J45.21 - Mild intermittent asthma with (acute) exacerbation HALEY SCHWARZ APRN Jan 04, 2021 14:19 ANNE MARIE SPICER DO Jan 05, 2021 06:57
--- NOTE | 2021-01-04 14:24 | EKG ---
[address] [address] Test Date: 2021-01-04 Test Time: 14:14:29 Pat Name: VALENTIN SOLIS Department: Room: Gender: F Vat Tender: THERESE : 1990 Requested By: HALEY SCHWARZ Order Number: [id number] Reading MD: Nico Chavarria MD Measurements Intervals [place] Rate: 131 P: 79 NH: 134 QRS: 55 QRSD: 72 T: 18 QT: 292 QTc: 436 Interpretive Statements SINUS TACHYCARDIA RIGHT ATRIAL ENLARGEMENT POSSIBLE. Electronically Signed On 01-05-2021 13:48:14 WATER SYSTEMS ENGINEER by Nico Chavarria MD
--- NOTE | 2021-01-04 14:37 | RAD ---
EXAM: CHEST 1 VIEW History: Cough COMPARISON: 06/04/2018 TECHNIQUE: Single portable radiograph of the chest FINDINGS: The cardiac silhouette is unremarkable. The lungs are clear bilaterally. The costophrenic sulci are clear and well demarcated. IMPRESSION: No radiographic evidence of an acute cardiopulmonary process. Electronically signed by: Vinh Mac MD (01/04/2021 2:34 PM) [id number]
[2021-01-04] MEDS ORDERED: IBUPROFEN 600 MG TABLET. PO ONE (15:00)
[2021-01-04] MEDS ORDERED: PRED50TA PO (15:27)
[2021-01-04] MEDS ORDERED: PROAIR RESPICL90 MCG IH (15:27)
== END 2021-01-04 15:50 | disposition home or self-care (01) ==
LOC: ER 13:58
DX: J45.21 Mild intermittent asthma with (acute) exacerbation (principal); J20.9 Acute bronchitis, unspecified; R00.0 Tachycardia, unspecified; F41.9 Anxiety disorder, unspecified; F31.9 Bipolar disorder, unspecified; F17.210 Nicotine dependence, cigarettes, uncomplicated; Z88.8 Allergy status to other drugs, medicaments and biological substances
CPT/HCPCS: 71045; 93005; 99283

== ENCOUNTER 2021-01-20 11:48 | Emergency (ER) | payer OTHER ==
[~2021-01-20] VITALS: Ht 165.1 cm; Wt 67.0 kg
[2021-01-20 11:48] VITALS: BP 114/62
[~2021-01-20 11:48] MED LIST changes: +PRED50TA PO; +PROAIR RESPICL90 MCG IH
[2021-01-20] MEDS ORDERED: ACETAMINOPHEN 325 MG TABLET PO ONE (12:15)
--- NOTE | 2021-01-20 12:28 | PHYS DOC ---
Past History Past Medical History: Anxiety, Asthma, Bipolar, Cancer, Constipation, Ovarian Cyst Additional Past Medical Histor: cysts, ulcer (HARINDER SPIVEY) Past Surgical History: Appendectomy, Cholecystectomy, Other Additional Past Surgical Histo: LEFT OOPHORECTOMY, CARPAL TUNNEL SURGERY, R EYE REMOVED, D&C x2 (HARINDER SPIVEY) Smoking: Cigarettes, Greater than 1 pack/day Alcohol Use: Occasionally Drug Use: None (HARINDER SPIVEY) General Adult EDM: Chief Complaint: VAGINAL BLEEDING HPI: HPI: Patient is a 30-year-old A1 female who presents with abdominal cramping and vaginal bleeding. Patient reports she had some pelvic cramping yesterday, for which she took a hydrocodone. Today, she states she had "3 bursts" of blood that filled 1 pantiliner. Patient reports she had a miscarriage in February of this year at 9 weeks gestation, which presented very similarly. She was given RhoGam last week when she confirmed her with her upholstery repairer. Patient has no other complaints at this time. (HARINDER SPIVEY) Review of Systems: Review of Systems: Constitutional: Denies fever or chills Respiratory: Denies cough or shortness of breath Cardiovascular: Denies chest pain or edema GI: Denies abdominal pain, nausea, vomiting, bloody stools or diarrhea : See HPI Musculoskeletal: Denies back pain or joint pain Integument: Denies rash or other skin lesion Neurologic: Denies headache, focal weakness or sensory changes (HARINDER SPIVEY) Current Medications: Current Meds: Current Medications Medications (Trade) Dose Ordered Sig/Arcadio Start Time Stop Time Status Last Admin Dose Admin Acetaminophen (Tylenol) 650 mg 1X ONCE 01/20/21 12:15 01/20/21 12:18 DC (HARINDER SPIVEY) Allergies: Allergies: Allergies Coded Allergies Type Severity Reaction Last Updated Verified divalproex sodium Allergy Intermediate Hives 09/05/20 Yes tramadol Allergy Unknown urticaria 09/05/20 Yes (HARINDER SPIVEY) Physical Exam: PE: Constitutional: Well developed, well nourished, tearful, non-toxic appearance. Cardiovascular: Heart rate regular rhythm, no murmur. Lungs & Thorax: Bilateral breath sounds clear to auscultation. Abdomen: Bowel sounds normal, soft, low abdominal/suprapubic tenderness appreciated, unable to palpate gravid uterus at this time, no masses, no pulsatile masses. Skin: Warm, dry, no erythema, no rash. (HARINDER SPIVEY) Current Patient Data: Labs: Laboratory Tests Test 01/20/21 12:04 01/20/21 14:32 Bedside Urine HCG, Qualitative hcg positive (Negative) Maternal Serum HCG Beta Subunit 5585 mIU/mL (0-6) Vital Signs: Vital Signs Date Time Temp Pulse Resp B/P (MAP) Pulse Ox O2 Delivery O2 Flow Rate FiO2 01/20/21 11:48 98.3 95 18 114/62 (79) 99 Room Air (HARINDER SPIVEY) Radiology/Procedures: Radiology/Procedures: PROCEDURE: OB <14 WKS W/TV US OB <14 WKS +TV History: Bleeding during known <14 wk Comparison: None. Technique: Sonographic examination of the pelvis was performed with transabdominal and transvaginal technique. Findings: The uterus is mildly heterogeneous in echotexture, measuring 9.9 x 5.7 x 6.6 cm. The uterus contains a single gestational sac with normal shape. A yolk sac is identified and possible adjacent pole although too small to completely characterize. The mean gestational sac diameter is 0.84 cm, corresponding to a gestational age of 5 weeks 4 days. Moderate sized collection adjacent to the gestational sac likely represents subchorionic hemorrhage, abutting approximately 50 percent of the gestational sac circumference. The right ovary measures 3.9 x 3.0 x 3.3 cm inclusive of a hemorrhagic cyst with layering blood products and lacy internal echoes measuring 2.5 x 2.5 x 3.1 cm. The left ovary is surgically absent. There is no evidence of adnexal mass or free fluid. Impression: 1. Subchorionic hemorrhage abutting approximately 50 percent of the gestational sac circumference. 2. Intrauterine gestational sac with average diameter corresponding to a gestational age of 5 weeks 4 days. A yolk sac is seen however a definitive pole is not yet identified. Electronically signed by: Bob Tompkins MD (01/20/2021 1:55 PM) UIC-WILL (HARINDER SPIVEY) Heart Score: C/O Chest Pain: No (HARINDER SPIVEY) Course & Med Decision Making: Course & Med Decision Making Pertinent Labs and Imaging studies reviewed. (See chart for details) Patient presents with mild to moderate vaginal bleeding during known . Patient's gestational age is estimated at 6 weeks. Transvaginal ultrasound ordered. Ultrasound shows a moderate-sized (greater than 50%) subchorionic hemorrhage. Spoke to Dr. Fernandez with obstetrics at [facility], who advised expectant management. She may follow-up with her upholstery repairer in 1 week. Patient understands and agrees to discharge plan. (HARINDER SPIVEY) Course & Med Decision Making I was the Attending physician on the above date of service of this patient. This patient was evaluated, examined, treated, and dispositioned from the emergency department by the mid-level practitioner. I reviewed ultrasound findings and discussed need for GUM REMOVER consultation. I agree to plan of care as stated by GUM REMOVER. Departure with close outpatient follow-up and strict return precautions Electronically signed, Anne Marie Spicer DO (ANNE MARIE SPICER DO) Marciano Disclaimer: Marciano Disclaimer: This electronic medical record was generated, in whole or in part, using a voice recognition dictation system. (HARINDER SPIVEY) Departure Departure: Impression: Primary Impression: Subchorionic hemorrhage in first trimester Qualified Codes: O41.8X10 - Other specified disorders of amniotic fluid and membranes, first trimester, not applicable or unspecified; O46.8X1 - Other antepartum hemorrhage, first trimester Disposition: 01 HOME / SELF CARE / HOMELESS Condition: STABLE Referrals: GUS BUI MD (PCP) Patient Instructions: Subchorionic Hematoma Additional Instructions: Your ultrasound today revealed a subchorionic hemorrhage, or bleeding between the layers of the gestational sac. I spoke to upholstery repairer with [facility], who advised a follow-up appointment with your upholstery repairer in 1 week. Please return to the emergency department for worsening symptoms, increased vaginal bleeding, or development of any new symptoms. HARINDER SPIVEY Jan 20, 2021 12:28 ANNE MARIE SPICER DO Jan 21, 2021 06:24
--- NOTE | 2021-01-20 13:57 | RAD ---
US OB <14 WKS +TV History: Bleeding during known <14 wk Comparison: None. Technique: Sonographic examination of the pelvis was performed with transabdominal and transvaginal t echnique. Findings: The uterus is mildly heterogeneous in echotexture, measuring 9.9 x 5.7 x 6.6 cm. The uterus contains a single gestational sac with normal shape. A yolk sac is identified and possible adjacent pole although too small to completely characterize. The mean gestational sac diameter is 0.84 cm, corresponding to a gestational age of 5 weeks 4 days. Moderate sized collection adjacent to the gestational sac likely represents subchorionic hemorrhage, abutting approximately 50 percent of the gestational sac circumference. The right ovary measures 3.9 x 3.0 x 3.3 cm inclusive of a hemorrhagic cyst with layering blood produ cts and lacy internal echoes measuring 2.5 x 2.5 x 3.1 cm. The left ovary is surgically absent. There is no evidence of adnexal mass or free fluid. Impression: 1. Subchorionic hemorrhage abutting approximately 50 percent of the gestational sac circumference. 2. Intrauterine gestational sac with average diameter corresponding to a gestational age of 5 weeks 4 days. A yolk sac is seen however a definitive pole is not yet identified. Electronically signed by: Bob Tompkins MD (01/20/2021 1:55 PM) [facility]
== END 2021-01-20 14:50 | disposition home or self-care (01) ==
LOC: ER 11:48
DX: O46.8X1 Other antepartum hemorrhage, first trimester (principal); O99.511 Diseases of the respiratory system complicating pregnancy, first trimester; J45.909 Unspecified asthma, uncomplicated; O99.331 Smoking (tobacco) complicating pregnancy, first trimester; Z3A.01 Less than 8 weeks gestation of pregnancy; Z88.8 Allergy status to other drugs, medicaments and biological substances
CPT/HCPCS: 36415; 76801; 76817; 81025; 84702; 99284

== ENCOUNTER 2021-02-23 00:37 | Emergency (ER) | payer SELFPAY ==
[~2021-02-23] VITALS: Ht 165.1 cm; Wt 72.7 kg
[2021-02-23 00:55] VITALS: BP 108/64
--- NOTE | 2021-02-23 01:06 | PHYS DOC ---
Past History Past Medical History: Anxiety, Asthma, Bipolar, Cancer, Constipation, Ovarian Cyst Additional Past Medical Histor: cysts, ulcer Past Surgical History: Appendectomy, Cholecystectomy, Other Additional Past Surgical Histo: LEFT OOPHORECTOMY, CARPAL TUNNEL SURGERY, R EYE REMOVED, D&C x2 Smoking: Cigarettes, Greater than 1 pack/day Alcohol Use: Occasionally Drug Use: None General Adult EDM: Chief Complaint: VAGINAL BLEEDING HPI: HPI: 30-year-old female who is about 10 weeks presents with vaginal bleeding and cramping. The patient states that she thinks she is about 10 weeks . She was diagnosed with an intrauterine and subchorionic hemorrhage by ultrasound about a month ago. The bleeding stopped after that episode. She has had more bleeding today and a lot of lower pelvic pressure. She called her OB who advised that she go to the emergency room. The patient did not go to the hospital where she is going to deliver because she did not want to drive that far. Patient states she has gone through about 5 pads today from bleeding. She has taken Tylenol 3 for pain and it is not helping the way it usually does. Review of Systems: Review of Systems: Constitutional: Denies fever or chills Eyes: Denies change in visual acuity HENT: Denies nasal congestion or sore throat Respiratory: Denies cough or shortness of breath Cardiovascular: Denies chest pain or edema GI: Lower abdominal pain, nausea. Denies vomiting, bloody stools or diarrhea : Vaginal bleeding in Musculoskeletal: Denies back pain or joint pain Integument: Denies rash Neurologic: Denies headache, focal weakness or sensory changes Endocrine: Denies polyuria or polydipsia Lymphatic: Denies swollen glands Psychiatric: Denies depression or anxiety Current Medications: Current Meds: Current Medications Medications (Trade) Dose Ordered Sig/Arcadio Start Time Stop Time Status Last Admin Dose Admin Sodium Chloride 1,000 ml @ 1,000 mls/hr 1X ONCE 02/23/21 01:00 02/23/21 01:59 UNV Allergies: Allergies: Allergies Coded Allergies Type Severity Reaction Last Updated Verified divalproex sodium Allergy Intermediate Hives 09/05/20 Yes tramadol Allergy Unknown urticaria 09/05/20 Yes Physical Exam: PE: Constitutional: Well developed, well nourished, no acute distress, non-toxic appearance. [] HENT: Normocephalic, atraumatic, bilateral external ears normal, oropharynx moist, no oral exudates, nose normal. [] Eyes: PERRLA, EOMI, conjunctiva normal, no discharge. [] Neck: Normal range of motion, no tenderness, supple, no stridor. [] Cardiovascular: Heart rate regular rhythm, no murmur [] Lungs & Thorax: Bilateral breath sounds clear to auscultation [] Abdomen: Bowel sounds normal, soft, suprapubic tenderness, no masses, no pulsatile masses. [] Skin: Warm, dry, no erythema, no rash. [] Back: No tenderness, no CVA tenderness. [] Extremities: No tenderness, no cyanosis, no clubbing, ROM intact, no edema. [] Neurologic: Alert and oriented X 3, normal motor function, normal sensory function, no focal deficits noted. [] Psychologic: Affect normal, judgement normal, mood normal. : Deferred [] Current Patient Data: Vital Signs: Vital Signs Date Time Temp Pulse Resp B/P (MAP) Pulse Ox O2 Delivery O2 Flow Rate FiO2 02/23/21 00:55 97.7 107 18 108/64 (79) 100 Room Air EKG: EKG: [] Radiology/Procedures: Radiology/Procedures: [] Heart Score: C/O Chest Pain: N/A Risk Factors: Risk Factors: DM, Current or recent (<one month) smoker, HTN, HLP, family history of CAD, obesity. Risk Scores: Score 0 - 3: 2.5% MACE over next 6 weeks - Discharge Home Score 4 - 6: 20.3% MACE over next 6 weeks - Admit for Clinical Observation Score 7 - 10: 72.7% MACE over next 6 weeks - Early Invasive Strategies Course & Med Decision Making: Course & Med Decision Making Pertinent Labs and Imaging studies reviewed. (See chart for details) The patient is quite uncomfortable and would like stronger pain medication. I will give her 4 mg of morphine and 4 mg of Zofran. Given that we have confirmed intrauterine as well is unknown subchorionic hemorrhage, I do not believe ultrasound is absolutely necessary. We will attempt to get heart tones that I have warned the patient that we may not be able to hear them at this point in her . There is nothing that can be done if this is a miscarriage. Ultrasound would not private branch exchange operator. We were unable to find heart tones with the Doppler. I have advised that she follow-up with her OB on Wednesday. She is stable for discharge at this time. [] Marciano Disclaimer: Marciano Disclaimer: This electronic medical record was generated, in whole or in part, using a voice recognition dictation system. Departure Departure: Impression: Primary Impression: Vaginal bleeding affecting early Disposition: HOME / SELF CARE / HOMELESS Condition: STABLE Referrals: GUS BUI MD (PCP) Patient Instructions: Vaginal Bleeding During , First Trimester DELTA WADE DO Feb 23, 2021 01:06
[2021-02-23] MEDS ORDERED: IV NORMAL SALINE 1,000ML 1,000 ML IV ONE (01:30)
[2021-02-23] MEDS ORDERED: MORPHINE SULFATE 4 MG/ML DISP.SYRIN. IV ONE (01:30)
[2021-02-23] MEDS ORDERED: ONDANSETRON PF 4 MG/2 ML VIAL. IVP ONE (01:30)
[2021-02-23 01:45] LABS: BASO % 0 % (0-3); EOS # 0.1 x10^3/uL (0.0-0.7); EOS % 1 % (0-3); HEMATOCRIT 33.3 % (36.0-47.0); LYMPH # 2.6 x10^3/uL (1.0-4.8); LYMPH % 31 % (24-48); MEAN CORPUSCULAR HEMOGLOBIN 29 pg (25-35); MEAN CORPUSCULAR HGB CONC 33 g/dL (31-37); MEAN CORPUSCULAR VOLUME 88 fL (79-100); MONO # 0.7 x10^3/uL (0.0-1.1); MONO % 8 % (0-9); NEUT # 5.1 x10^3uL (1.8-7.7); NEUT % 60 % (31-73); PLATELET COUNT 206 x10^3/uL (140-400); RED BLOOD COUNT 3.81 x10^6/uL (3.50-5.40); RED CELL DISTRIBUTION WIDTH 19.7 % (11.5-14.5); WHITE BLOOD COUNT 8.5 x10^3/uL (4.0-11.0)
[2021-02-23 01:52] LABS: BILIRUBIN,URINE NEG (NEG); CLARITY,URINE CLEAR; COLOR,URINE AMBER; GLUCOSE,URINE NEG (NEG)
[2021-02-23 01:53] LABS: BACTERIA,URINE FEW /HPF (0-FEW); NITRITE,URINE NEG (NEG); SQUAMOUS EPITHELIAL CELL,UR FEW /LPF; UROBILINOGEN,URINE 0.2 mg/dL (0.2 mg/dL)
[2021-02-23 01:55] LABS: CALCIUM 8.9 mg/dL (8.5-10.1); CREATININE 0.5 mg/dL (0.6-1.0); GFR 146.9; POTASSIUM 3.9 mmol/L (3.5-5.1)
[2021-02-23 02:02] LABS: ALBUMIN 3.8 g/dL (3.4-5.0); ALBUMIN/GLOBULIN RATIO 1.2 (1.0-1.7); TOTAL BILIRUBIN 0.3 mg/dL (0.2-1.0); TOTAL PROTEIN 6.9 g/dL (6.4-8.2)
== END 2021-02-23 02:41 | disposition home or self-care (01) ==
LOC: ER 00:37
DX: O46.92 Antepartum hemorrhage, unspecified, second trimester (principal); Z3A.10 10 weeks gestation of pregnancy; O99.512 Diseases of the respiratory system complicating pregnancy, second trimester; J45.909 Unspecified asthma, uncomplicated; O99.342 Other mental disorders complicating pregnancy, second trimester; F31.9 Bipolar disorder, unspecified; O99.332 Smoking (tobacco) complicating pregnancy, second trimester; Z90.89 Acquired absence of other organs; Z90.49 Acquired absence of other specified parts of digestive tract
CPT/HCPCS: 36415; 80053; 81001; 84702; 85025; 96361; 96374; 96375; 99284; J2270; J2405; J7030

== ENCOUNTER → 2021-03-05 | Outpatient (CLI) | payer SELFPAY ==
[2021-02-23 00:55] VITALS: BP 108/64
--- NOTE | 2021-03-05 16:15 | RAD ---
EXAM: Obstetrics sonogram. HISTORY: Subchronic hemorrhage. Bleeding. TECHNIQUE: Sonographic imaging of a gravid uterus was performed. COMPARISON: 02/08/2021. FINDINGS: The uterus measures 11.6 x 8.5 x 8.0 cm. The cervix measures 2.9 cm in length. There is a s angus imaging fetus with heart rate of 163 bpm. The crown-rump length is 4.4 cm, corresponding with a gestational age of 11 weeks and 2 days and due date of 09/22/2021. There is a subchronic hematom a along the gestational sac measuring 5.0 x 4.6 x 2.6 cm. The right ovary is unremarkable. The left o vary is surgically absent. There is no pelvic free fluid. IMPRESSION: 1. Single intrauterine fetus with normal heart rate and gestational age based on ultrasound measureme nts of 11 weeks and 2 days. 2. Subchorionic hematoma measuring 5.0 x 4.6 x 2.6 cm. This is increased compared to a prior maximum measurement of 3.5 cm. Electronically signed by: Farrah Ruiz MD (03/05/2021 4:13 PM) [id number]
== END ==
LOC: US 15:33
PROVIDERS: ATTEND Registered Nurse
DX: O20.9 Hemorrhage in early pregnancy, unspecified (principal); Z3A.10 10 weeks gestation of pregnancy
CPT/HCPCS: 76801

== ENCOUNTER → 2021-04-21 | Outpatient (CLI) | payer OTHER ==
--- NOTE | 2021-04-21 16:22 | RAD ---
Study: US OB LIMITED Clinical Indication: Cervix abnormality. Comparison: 03/05/2021 Technique: Multiple grayscale images, color Doppler, and M-mode images of the uterus are obtained. Findings: Single intrauterine gestation in vertex presentation. The placenta is fundal in location without evid ence of placenta previa. The previously described subchorionic hemorrhage is no longer seen. The amou nt of amniotic fluid appears appropriate. Cervical length is 4.3 cm and the cervix is closed. Biometrical data: BPD = 3.77 cm for 17 weeks 4 days. HC = 14.60 cm for 17 weeks 5 days. AC = 13.07 cm for 18 weeks 4 days. FL = 2.37 cm for 17 weeks 1 days. CI ratio = 75.2. HC/AC ratio = 1.12. FL/HC ratio = 16.2. Overall, the estimated sonographic gestational age is 17 weeks 5 days for an estimated date of delive ry of 09/24/2021. The clinical estimated date of delivery is 09/24/2021. Estimated weight is 214 + /- 32 grams. A 4 chamber heart is identified with positive cardiac activity. The estimated heart rate is 147 beats per minute. A anatomy scan was not performed. Impression: 1. Single live intrauterine gestation with estimated sonographic gestational age of 17 weeks 5 days corresponding to an estimated delivery date of 09/24/2021. Clinically estimated delivery date of 09/25/19 22. weight estimate of 214 +/- 32 grams which is at the 16th percentile. 2. Previously described subchorionic hemorrhage no longer visualized. 3. Cervix is long and closed measuring 4.3 cm. Electronically signed by: Bob Tompkins MD (04/21/2021 4:19 PM) [id number]
== END ==
LOC: US 10:54
PROVIDERS: ATTEND Registered Nurse
DX: O34.42 Maternal care for other abnormalities of cervix, second trimester (principal); Z3A.17 17 weeks gestation of pregnancy
CPT/HCPCS: 76815

== ENCOUNTER → 2021-05-22 | Outpatient (CLI) | payer OTHER ==
--- NOTE | 2021-05-22 12:25 | RAD ---
Study: US OB >14 WEEKS Clinical Indication: Anatomy scan Comparison: None. Technique: Multiple grayscale images, color Doppler, and M-mode images of the uterus are obtained. Findings: Single intrauterine gestation in transverse presentation. The placenta is posterior in location witho ut evidence of placenta previa. The amount of amniotic fluid appears appropriate. Amniotic fluid ind ex is 16.7 cm. Cervical length is 3.8 cm cm. Biometrical data: BPD = 4.69 cm for 20 weeks 1 days. HC = 18.63 cm for 21 weeks 0 days. AC = 17.72 cm for 22 weeks 4 days. FL = 3.49 cm for 21 weeks 0 days. CI ratio = 71.7 (below the reference range of 74-83). HC/AC ratio = 1.05 (below the reference range of 1.06-1.25). FL/HC ratio = 18.7. FL/AC ratio = 19.7 (below the reference range of 20-24). Overall, the estimated sonographic gestational age is 21 weeks 1 day. Estimated weight is 446 g narinder. There is no cardiac activity. A full anatomy scan was not performed. Impression: Single intrauterine gestation with no cardiac activity, consistent with demise. Findings were discussed with ordering provider by the performing compliance field technician at the conclusion of the exam. Electronically signed by: Bob Tompkins MD (05/22/2021 12:23 PM) [id number]
== END ==
LOC: US 10:48
PROVIDERS: ATTEND Registered Nurse
DX: Z34.92 Encounter for supervision of normal pregnancy, unspecified, second trimester (principal); Z3A.21 21 weeks gestation of pregnancy
CPT/HCPCS: 76805

== ENCOUNTER 2021-06-07 14:31 | Emergency (ER) | payer OTHER ==
[~2021-06-07] VITALS: Ht 165.1 cm; Wt 72.7 kg
[2021-06-07] MEDS ORDERED: IV NORMAL SALINE 1,000ML 1,000 ML IV ONE ×2 (15:45→19:15)
--- NOTE | 2021-06-07 15:56 | PHYS DOC ---
Past History Past Medical History: Anxiety, Asthma, Bipolar, Cancer, Constipation, Ovarian Cyst Additional Past Medical Histor: cysts, ulcer (TARUN ALVES APRN) Past Surgical History: Appendectomy, Cholecystectomy, Other Additional Past Surgical Histo: LEFT OOPHORECTOMY, CARPAL TUNNEL SURGERY, R EYE REMOVED, D&C x3 (TARUN ALVES APRN) Smoking: Cigarettes, Greater than 1 pack/day Alcohol Use: None Drug Use: None (TAURN ALVES APRN) General Adult EDM: Chief Complaint: POST-OP PROBLEM HPI: HPI: Patient is a 30-year-old female who presents to the emergency department for vaginal bleeding and abdominal pain that started yesterday. Patient had a 22- week stillbirth on May 23 was seen at [facility] on May 26 for vaginal bleeding and abdominal pain. At that time, she was admitted and Dr. Fernandez performed a D&C on May 27. Patient reports that she had not had bleeding since but yesterday started having silver dollar sized bright red blood clots. She is also reporting bilateral pelvic pain and right upper quadrant pain. She rates her pain 6 out of 10. She describes it as a cramping pain. She is not saturating any pads. She reports that her last bowel movement was 2 weeks ago. She denies any urinary symptoms, fevers, nausea, vomiting currently. Patient has a history of multiple D&Cs in the past, left nephrectomy, cholecystectomy note appendectomy. (TARUN ALVES APRN) Review of Systems: Review of Systems: Constitutional: See HPI GI: See HPI : See HPI (TARUN ALVES APRN) Current Medications: Current Meds: Current Medications Medications (Trade) Dose Ordered Sig/Arcadio Start Time Stop Time Status Last Admin Dose Admin Fentanyl Citrate (Fentanyl 2ml Vial) 50 mcg 1X ONCE 06/07/21 15:45 06/07/21 15:46 DC Sodium Chloride 1,000 ml @ 1,000 mls/hr 1X ONCE 06/07/21 15:45 06/07/21 16:44 (TARUN ALVES APRN) Allergies: Allergies: Allergies Coded Allergies Type Severity Reaction Last Updated Verified divalproex sodium Allergy Intermediate Hives 06/07/21 Yes tramadol Allergy Unknown urticaria 06/07/21 Yes (TARUN ALVES APRN) Physical Exam: PE: Constitutional: Well developed, well nourished, no acute distress, non-toxic a ppearance. [] HENT: Normocephalic, atraumatic, bilateral external ears normal, oropharynx moist, no oral exudates, nose normal. [] Eyes: PERRL, EOMI, conjunctiva normal, no discharge. [] Neck: Normal range of motion, no tenderness, supple, no stridor. [] Cardiovascular:Heart rate tachycardic rhythm, no murmur [] Lungs & Thorax: Bilateral breath sounds clear to auscultation [] Abdomen: Bowel sounds normal, soft, no tenderness, no masses, no abdominal guarding or rigidity, left lower quadrant/suprapubic and right upper quadrant tenderness with palpation, no pulsatile masses. [] Skin: Warm, dry, no erythema, no rash. [] Back: No tenderness, no CVA tenderness. [] Extremities: No tenderness, no cyanosis, no clubbing, ROM intact, no edema. [] Neurologic: Alert and oriented X 3, normal motor function, normal sensory function, no focal deficits noted. [] Psychologic: Affect normal, judgement normal, mood normal. [] (TARUN ALVES APRN) Current Patient Data: Labs: Laboratory Tests Test 06/07/21 15:57 06/07/21 16:02 Urine Collection Type Clean catch Urine Color Yellow Urine Clarity Clear Urine pH 6.5 Urine Specific [place] 1.015 Urine Protein Neg Urine Glucose (UA) Neg mg/dL Urine Ketones (Stick) Neg mg/dL Urine Blood Large Urine Nitrite Neg Urine Bilirubin Neg Urine Urobilinogen Dipstick 0.2 mg/dL Urine Leukocyte Esterase Small Urine RBC 6-10 /HPF Urine WBC 5-10 /HPF Urine Squamous Epithelial Cells Mod /LPF Urine Bacteria Mod /HPF White Blood Count 7.3 x10^3/uL Red Blood Count 3.93 x10^6/uL Hemoglobin 11.2 g/dL Hematocrit 35.1 % Mean Corpuscular Volume 89 fL Mean Corpuscular Hemoglobin 29 pg Mean Corpuscular Hemoglobin Concent 32 g/dL Red Cell Distribution Width 14.9 % Platelet Count 311 x10^3/uL Neutrophils (%) (Auto) 65 % Lymphocytes (%) (Auto) 28 % Monocytes (%) (Auto) 5 % Eosinophils (%) (Auto) 1 % Basophils (%) (Auto) 1 % Neutrophils # (Auto) 4.8 x10^3uL Lymphocytes # (Auto) 2.1 x10^3/uL Monocytes # (Auto) 0.4 x10^3/uL Eosinophils # (Auto) 0.1 x10^3/uL Basophils # (Auto) 0.0 x10^3/uL Sodium Level 147 mmol/L Potassium Level 3.7 mmol/L Chloride Level 109 mmol/L Carbon Dioxide Level 26 mmol/L Anion Gap 12 Blood Urea Nitrogen 7 mg/dL Creatinine 0.7 mg/dL Estimated GFR (Cockcroft-Gault) 99.6 BUN/Creatinine Ratio 10 Glucose Level 95 mg/dL Calcium Level 9.3 mg/dL Total Bilirubin 0.3 mg/dL Aspartate Amino Transf (AST/SGOT) 13 U/L Alanine Aminotransferase (ALT/SGPT) 19 U/L Alkaline Phosphatase 80 U/L Total Protein 7.7 g/dL Albumin 3.5 g/dL Albumin/Globulin Ratio 0.8 Current Medications Medications (Trade) Dose Ordered Sig/Arcadio Route PRN Reason Start Time Stop Time Status Last Admin Dose Admin Sodium Chloride 1,000 ml @ 1,000 mls/hr 1X ONCE IV 06/07/21 15:45 06/07/21 16:44 DC 06/07/21 16:24 Fentanyl Citrate (Fentanyl 2ml Vial) 50 mcg 1X ONCE IVP 06/07/21 15:45 06/07/21 15:46 DC 06/07/21 16:24 Iohexol (Omnipaque 300 Mg/ml) 75 ml 1X ONCE IV 06/07/21 16:00 06/07/21 16:01 DC Fentanyl Citrate (Fentanyl 2ml Vial) 50 mcg 1X ONCE IVP 06/07/21 17:45 06/07/21 17:46 DC 06/07/21 17:49 Vital Signs: Vital Signs Date Time Temp Pulse Resp B/P (MAP) Pulse Ox O2 Delivery O2 Flow Rate FiO2 06/07/21 15:20 98.5 112 18 111/79 (90) 97 Room Air (TARUN ALVES APRN) EKG: EKG: [] (TARUN ALVES APRN) Radiology/Procedures: Radiology/Procedures: []PROCEDURE: CT ABD PELV W/ IV CONTRST ONLY PQRS Compliance Statement: One or more of the following individualized dose reduction techniques were utilized for this examination: 1. Automated exposure control 2. Adjustment of the mA and/or kV according to patient size 3. Use of iterative reconstruction technique Exam performed: CT abdomen and pelvis with IV contrast. HISTORY: Abdominal pain and vaginal bleeding. DATE OF SERVICE: 06/07/2021. COMPARISON: None available TECHNIQUE: Contiguous helical acquisitions are obtained through the abdomen and pelvis during intravenous administration of IV contrast. Sagittal and coronal reformatted images are obtained and reviewed. FINDINGS: The lung bases are essentially clear. The visualized heart is normal. The liver, spleen and pancreas are normal. Cholecystectomy. Both adrenal glands and bilateral kidneys are normal in size with symmetric excretion of contrast via both kidneys. There is no hydronephrosis or nephrolithiasis. The small and large bowel loops are nondilated and unremarkable. The urinary bladder is partially decompressed. The uterus is enlarged. There is fluid in the endometrial cavity with suggestion of a soft tissue density within the fluid cavity. No adnexal masses are seen. No free fluid. Interrogation of bone windows demonstrates no bony abnormalities. IMPRESSION: Enlarged uterus with fluid filling the endometrial cavity with a soft tissue density. This could perhaps represent endometrial fluid/hemorrhage with clot. Intrauterine may give similar appearance. Correlate with serum beta- hCG level. Evaluation with pelvic sonogram may be obtained. Electronically signed by: Renée Nevarez MD (06/07/2021 4:28 PM) [facility] DICTATED AND SIGNED BY: RENÉE NEVAREZ MD DATE: 06/07/21 1624 CC: GUS BUI MD; TARUN ALVES APRN ~ REASON: vaginal bleeding and pain; post D&C 11 days ago PROCEDURE: PELVIS COMPLETE INDICATION: Reason: vaginal bleeding and pain; post D C 11 days ago / [facility]. Instructions: / History: COMPARISON: CT from same day TECHNIQUE: Grayscale and color ultrasound images uterus and adnexa. FINDINGS: Uterus: 98 x 65 x 46 mm. Fluid with echogenic material within the endometrial stripe measuring 36 x 34 x 15 mm. Right Ovary: 42 x 25 x 30 mm. Left Ovary: Removed IMPRESSION: * There is a hypoechoic region seen within the endometrial stripe. This could be secondary to cause such as blood products within the endometrium but follow- up could be obtained to ensure that this appropriately resolves. Superimposed other causes such as a polypoid lesion within the endometrial stripe with surrounding heterogenous fluid is not excluded with another possible cause including some retained products. Electronically signed by: Monica Cruz MD (06/07/2021 6:00 PM) [id number] DICTATED AND SIGNED BY: MONICA CRUZ MD DATE: 06/07/21 [id number] CC: GUS BUI MD; TARUN ALVES APRN ~ (TARUN ALVES APRN) Heart Score: C/O Chest Pain: N/A Risk Factors: Risk Factors: DM, Current or recent (<one month) smoker, HTN, HLP, family history of CAD, obesity. Risk Scores: Score 0 - 3: 2.5% MACE over next 6 weeks - Discharge Home Score 4 - 6: 20.3% MACE over next 6 weeks - Admit for Clinical Observation Score 7 - 10: 72.7% MACE over next 6 weeks - Early Invasive Strategies (TARUN ALVES APRN) Course & Med Decision Making: Course & Med Decision Making Pertinent Labs and Imaging studies reviewed. (See chart for details) [] Patient resents to the emergency department for vaginal bleeding and abdominal pain post D&C that occurred on May 27. Work-up in the ER consisted of blood work, urinalysis, CT imaging of abdomen and pelvis and pelvic ultrasound. Patient treated with IV fluids as she is tachycardic as well as pain medication. Patient's blood work is mostly unremarkable. Her hemoglobin is 11.2 and her hematocrit is 35.1. Patient's urinalysis dysuria and urinary tract infection should be treated with an antibiotic. Patient CT scan of her abdomen and pelvis is nonspecific. Ultrasound was performed which showed a hypoechoic density within the endometrial stripe which could be fluid from bleeding, lesion versus retained products. I discussed these findings with Dr. Patterson the [employer] at [facility]. Pelvic exam performed showed a small amount of dark red/brown vaginal bleeding without any clots and there was no visible tissue. She suggested giving patient 600 mcg of Cytotec perirectal to help her pass the blood clots and she is to follow-up with Dr. Fernandez on Wednesday as long as she is not having uncontrolled vaginal bleeding. Appears that this facility does not have Cytotec in stock therefore a consult with supervising physician and Mether[facility] was ordered. I discussed these findings with patient. She is agree able. Her vital signs are stable. I discussed with patient all findings and diagnostic testing as well as the need to follow-up with PCP for further evaluation and treatment or return to the ER if any new or worsening symptoms. Strict return precautions were also discussed at length. Patient voiced understanding and agreement with the plan. Patient is hemodynamically stable at the time of disposition. (TARUN ALVES APRN) Course & Med Decision Making Do not see or evaluate patient. And I discussed patient with [employer]. Generally agree with [employer]'s work-up and disposition per note (HERMELINDO BAKER MD) Dragon Disclaimer: Dragon Disclaimer: This electronic medical record was generated, in whole or in part, using a voice recognition dictation system. (TARUN ALVES APRN) Departure Departure: Impression: Primary Impression: Urinary tract infection Qualified Codes: N30.01 - Acute cystitis with hematuria Additional Impression: Vaginal bleeding Disposition: HOME / SELF CARE / HOMELESS Condition: GOOD Referrals: GUS BUI MD (PCP) MERCEDES FERNANDEZ MD Patient Instructions: Dilation and Curettage or Vacuum Curettage, Care After, Urinary Tract Infection Additional Instructions: You are seen in the emergency department today for pelvic pain and vaginal bleeding post D&C. Fluid was seen on the ultrasound and I spoke with the [employer] who advised us to give you medication here to help your uterus clamped down empath any bleeding or clots. You can expect vaginal bleeding for approximately 4 to 6 weeks post D&C. Please increase your fluids and rest. Take ibuprofen at home for your cramping and this should help with your bleeding as well. You were noted to have a urinary tract infection which was treated with an antibiotic. Please start and finish the antibiotic completely. Please follow- up with Dr. Fernandez in his office on Wednesday. Please return to this emergency department or to go to [facility] where there have [employer] coverage if you develop worsening of your abdominal pain, increased vaginal bleeding, high fevers refractory to treatment, weakness, syncope, intractable nausea or vomiting or any new or worsening concerns. Scripts Cephalexin (KEFLEX) 500 Mg Capsule 1 CAP PO BID for uti for 7 Days, #14 CAP 0 Refills Prov: TARUN ALVES APRN 06/07/21 TARUN ALVES APRN Jun 07, 2021 15:56 HERMELINDO BAKER MD Jun 07, 2021 20:14
[2021-06-07] MEDS ORDERED: IOHEXOL 300 MG/ML 75 ML VIAL. IV ONE (16:00)
[2021-06-07 16:19] LABS: BASO % 1 % (0-3); EOS # 0.1 x10^3/uL (0.0-0.7); EOS % 1 % (0-3); HEMATOCRIT 35.1 % (36.0-47.0); HEMOGLOBIN 11.2 g/dL (12.0-15.5); LYMPH # 2.1 x10^3/uL (1.0-4.8); LYMPH % 28 % (24-48); MEAN CORPUSCULAR HEMOGLOBIN 29 pg (25-35); MEAN CORPUSCULAR HGB CONC 32 g/dL (31-37); MEAN CORPUSCULAR VOLUME 89 fL (79-100); MONO # 0.4 x10^3/uL (0.0-1.1); MONO % 5 % (0-9); NEUT # 4.8 x10^3uL (1.8-7.7); NEUT % 65 % (31-73); PLATELET COUNT 311 x10^3/uL (140-400); RED BLOOD COUNT 3.93 x10^6/uL (3.50-5.40); RED CELL DISTRIBUTION WIDTH 14.9 % (11.5-14.5); WHITE BLOOD COUNT 7.3 x10^3/uL (4.0-11.0)
[2021-06-07 16:29] LABS: CALCIUM 9.3 mg/dL (8.5-10.1); CREATININE 0.7 mg/dL (0.6-1.0); GFR 99.6; POTASSIUM 3.7 mmol/L (3.5-5.1)
--- NOTE | 2021-06-07 16:30 | RAD ---
PQRS Compliance Statement: One or more of the following individualized dose reduction techniques were utilized for this examinat ion: 1. Automated exposure control 2. Adjustment of the mA and/or kV according to patient size 3. Use of iterative reconstruction technique Exam performed: CT abdomen and pelvis with IV contrast. HISTORY: Abdominal pain and vaginal bleeding. DATE OF SERVICE: 06/07/2021. COMPARISON: None available TECHNIQUE: Contiguous helical acquisitions are obtained through the abdomen and pelvis during intrave nous administration of IV contrast. Sagittal and coronal reformatted images are obtained and reviewed . FINDINGS: The lung bases are essentially clear. The visualized heart is normal. The liver, spleen and pancreas are normal. Cholecystectomy. Both adrenal glands and bilateral kidneys are normal in size with symmet jayshree excretion of contrast via both kidneys. There is no hydronephrosis or nephrolithiasis. The small and large bowel loops are nondilated and unremarkable. The urinary bladder is partially decompressed. The uterus is enlarged. There is fluid in the endometr ial cavity with suggestion of a soft tissue density within the fluid cavity. No adnexal masses are se en. No free fluid. Interrogation of bone windows demonstrates no bony abnormalities. IMPRESSION: Enlarged uterus with fluid filling the endometrial cavity with a soft tissue density. This could perh aps represent endometrial fluid/hemorrhage with clot. Intrauterine may give similar appeara nce. Correlate with serum beta-hCG level. Evaluation with pelvic sonogram may be obtained. Electronically signed by: Renée Nevarez MD (06/07/2021 4:28 PM) [facility]
[2021-06-07 16:35] LABS: ALBUMIN 3.5 g/dL (3.4-5.0); ALBUMIN/GLOBULIN RATIO 0.8 (1.0-1.7); TOTAL BILIRUBIN 0.3 mg/dL (0.2-1.0); TOTAL PROTEIN 7.7 g/dL (6.4-8.2)
[2021-06-07 16:48] LABS: CLARITY,URINE CLEAR; COLOR,URINE YELLOW; GLUCOSE,URINE NEG (NEG); UROBILINOGEN,URINE 0.2 mg/dL (0.2 mg/dL)
[2021-06-07 16:49] LABS: BACTERIA,URINE MOD /HPF (0-FEW); NITRITE,URINE NEG (NEG); SQUAMOUS EPITHELIAL CELL,UR MOD /LPF
[2021-06-07 17:45] VITALS: BP 124/80
--- NOTE | 2021-06-07 18:02 | RAD ---
INDICATION: Reason: vaginal bleeding and pain; post D C 11 days ago / Spl. Instructions: / History: COMPARISON: CT from same day TECHNIQUE: Grayscale and color ultrasound images uterus and adnexa. FINDINGS: Uterus: 98 x 65 x 46 mm. Fluid with echogenic material within the endometrial stripe measuring 36 x 34 x 15 mm. Right Ovary: 42 x 25 x 30 mm. Left Ovary: Removed IMPRESSION: * There is a hypoechoic region seen within the endometrial stripe. This could be secondary to cause such as blood products within the endometrium but follow-up could be obtained to ensure that this ap propriately resolves. Superimposed other causes such as a polypoid lesion within the endometrial stri pe with surrounding heterogenous fluid is not excluded with another possible cause including some ret ained products. Electronically signed by: Jacky Quiñonez MD (06/07/2021 6:00 PM) [id number]
[2021-06-07] MEDS ORDERED: METHYLERGONOVINE MALEATE 0.2 MG/ML VIAL. IM ONE (19:15)
[2021-06-07] MEDS ORDERED: CEPH500C PO (19:28)
== END 2021-06-07 20:11 | disposition home or self-care (01) ==
LOC: ER 14:31
DX: O86.20 Urinary tract infection following delivery, unspecified (principal); O72.1 Other immediate postpartum hemorrhage; J45.909 Unspecified asthma, uncomplicated; F31.9 Bipolar disorder, unspecified; F17.210 Nicotine dependence, cigarettes, uncomplicated; Z90.89 Acquired absence of other organs; Z90.49 Acquired absence of other specified parts of digestive tract; Z98.890 Other specified postprocedural states; Z88.8 Allergy status to other drugs, medicaments and biological substances
CPT/HCPCS: 36415; 74177; 76856; 80053; 81001; 85025; 87086; 96361; 96372; 96374; 96376; 99285; J2210; J3010; J7030